=== PATIENT | female | born 1935 | race Caucasian/White ===

== ENCOUNTER 2017-05-13 12:03 | Outpatient (CLI) | payer MEDICARE, OTHER ==
--- NOTE | 2017-05-14 13:19 | Mammography Report ---
DIGITAL SCREENING MAMMOGRAM: 05/13/2017 COMPARISON: 02/29/2016, 05/10/2013, 04/30/2012, 04/22/2011, 04/19/2010, 04/17/2009, 04/16/2008, 04/15. TECHNIQUE: Bilateral digital CC and MLO projections are performed. FINDINGS: There is extensive fatty replacement of the breast tissue. There is no dominant mass, arch itectural distortion, skin thickening, suspicious microcalcifications, or significant interval change . IMPRESSION: NEGATIVE. BIRADS CATEGORY 1-NEGATIVE. RECOMMENDATION: SUGGEST ROUTINE FOLLOWUP IN 12 MONTHS. STANDARD QUALIFYING STATEMENTS 1. This examination was reviewed with the aid of Computer-Aided Detection (CAD). 2. A negative or benign imaging report should not delay biopsy if clinically suspicious findings are present. Consider surgical consultation if warranted. More than 5% of cancers are not identified by i maging. 3. Dense breasts may obscure an underlying neoplasm. JOB #: [id number] EXT JOB #:[id number]
== END 2017-05-13 12:04 | disposition home or self-care (01) ==
LOC: DI 12:03
PROVIDERS: ATTEND Family Medicine
DX: Z12.31 Encounter for screening mammogram for malignant neoplasm of breast (principal)
CPT/HCPCS: 77067

== ENCOUNTER 2018-05-13 08:06 | Day surgery (SDC) | payer MEDICARE, OTHER ==
[2018-05-13] MEDS ORDERED: LACTATED RINGERS 1,000 ML IV ONE ×4 (08:54→11:05)
[2018-05-13 11:39] VITALS: BP 124/79
== END 2018-05-13 08:07 | disposition home or self-care (01) ==
LOC: SDS 08:06
PROVIDERS: ATTEND Internal Medicine
PROC: 0DBP8ZX Excision of Rectum, Via Natural or Artificial Opening Endoscopic, Diagnostic (ICD-10-PCS; 2018-05-13)
PROC: 0DBE8ZX Excision of Large Intestine, Via Natural or Artificial Opening Endoscopic, Diagnostic (ICD-10-PCS; principal; 2018-05-13 09:30)
DX: K51.80 Other ulcerative colitis without complications (principal); I45.4 Nonspecific intraventricular block
CPT/HCPCS: 45380; J7120; 88305

== ENCOUNTER 2018-05-29 07:43 | Outpatient (CLI) | payer MEDICARE, OTHER ==
[2018-05-29 12:14] LABS: BASOPHILS # (AUTO) 0.1 10^3/uL (0.0-0.1); BASOPHILS % (AUTO) 1.2 %; EOSINOPHILS # (AUTO) 0.1 10^3/uL (0.0-0.7); EOSINOPHILS % (AUTO) 2.1 %; HGB - HEMOGLOBIN 11.6 g/dL (12.0-16.0); LYMPHOCYTES # (AUTO) 3.2 10^3/uL (1.5-3.5); LYMPHOCYTES % (AUTO) 52.7 %; MEAN CORPUSCULAR HEMOGLOBIN 35.2 pg (27.0-31.0); MEAN CORPUSCULAR HGB CONC 34.8 g/dL (32.0-36.0); MEAN PLATELET VOLUME 7.1 fL (7.9-10.8); MONOCYTES # (AUTO) 0.5 10^3/uL (0.0-1.0); MONOCYTES % (AUTO) 7.4 %; NEUTROPHILS # (AUTO) 2.3 10^3/uL (1.5-6.6); NEUTROPHILS % (AUTO) 36.6 %; PLT - PLATELET COUNT 426 10^3/uL (130-450); WHITE BLOOD COUNT 6.2 x10^3/uL (4.8-10.8)
[2018-05-29 12:34] LABS: TROPONIN I < 0.04 ng/mL (<0.49)
[2018-05-29 12:37] LABS: CREATINE KINASE MB 1.7 ng/mL (0.6-6.3)
[2018-05-29 12:43] LABS: ALBUMIN 3.9 g/dL (3.2-5.5); ALBUMIN/GLOBULIN RATIO 1.1 (1.0-2.2); ALKALINE PHOSPHATASE 44 IU/L (42-121); ALT ALANINE AMINOTRANSFERASE 11 IU/L (10-60); AST ASPARTATE AMINOTRANSFERASE 18 IU/L (10-42); BILIRUBIN,TOTAL 0.6 mg/dL (0.2-1.0); BUN - BLOOD UREA NITROGEN 16 mg/dL (6-20); CALCIUM 9.1 mg/dL (8.5-10.3); CARBON DIOXIDE - CO2 24 mmol/L (21-32); CHLORIDE 98 mmol/L (101-111); CHOL/HDL RATIO 3.9 (<4.4); CHOLESTEROL 207 mg/dL; CREATININE 0.7 mg/dL (0.4-1.0); GFR - MDRD 80 (>89); GLUCOSE 105 mg/dL (70-100); HDL CHOLESTEROL 53 mg/dL; LDL CHOLESTEROL,CALCULATED 126 mg/dL; LDL/HDL RATIO 2.4 (<4.4); SODIUM 130 mmol/L (135-145); TOTAL PROTEIN 7.3 g/dL (6.7-8.2); VLDL CHOLESTEROL 28 mg/dL
== END 2018-05-29 07:44 | disposition home or self-care (01) ==
LOC: LAB.WCP 07:43
PROVIDERS: ATTEND Family Medicine
DX: I44.7 Left bundle-branch block, unspecified (principal); Z13.220 Encounter for screening for lipoid disorders; E03.9 Hypothyroidism, unspecified
CPT/HCPCS: 36415; 80053; 80061; 82553; 83721; 84443; 84484; 85025; 85379

== ENCOUNTER 2018-07-02 10:59 | Outpatient (CLI) | payer MEDICARE, OTHER | END 2018-07-02 11:00 | disposition home or self-care (01) | LOC: DI 10:59 | PROVIDERS: ATTEND Internal Medicine Cardiovascular Disease | DX: R94.31 Abnormal electrocardiogram [ECG] [EKG] (principal) | CPT/HCPCS: 93306 ==

== ENCOUNTER 2020-01-10 09:06 | Outpatient (CLI) | payer MEDICARE, OTHER ==
[2020-01-10 14:18] LABS: BASOPHILS % (AUTO) 0.3 %; EOSINOPHILS # (AUTO) 0.2 10^3/uL (0.0-0.7); HGB - HEMOGLOBIN 12.1 g/dL (12.0-16.0); LYMPHOCYTES # (AUTO) 2.2 10^3/uL (1.5-3.5); LYMPHOCYTES % (AUTO) 29.7 %; MEAN CORPUSCULAR HEMOGLOBIN 31.8 pg (27.0-31.0); MEAN CORPUSCULAR HGB CONC 32.7 g/dL (32.0-36.0); MEAN CORPUSCULAR VOLUME 97.4 fL (81.0-99.0); MEAN PLATELET VOLUME 9.7 fL (7.9-10.8); MONOCYTES # (AUTO) 0.5 10^3/uL (0.0-1.0); MONOCYTES % (AUTO) 6.8 %; NEUTROPHILS # (AUTO) 4.6 10^3/uL (1.5-6.6); NEUTROPHILS % (AUTO) 60.7 %; PLT - PLATELET COUNT 297 10^3/uL (130-450); RED CELL DISTRIBUTION WIDTH 12.2 % (12.0-15.0); WHITE BLOOD COUNT 7.5 x10^3/uL (4.8-10.8)
[2020-01-10 14:44] LABS: % IRON SATURATION 40 % (20-50); ALBUMIN/GLOBULIN RATIO 1.4 (1.0-2.2); ALKALINE PHOSPHATASE 41 IU/L (42-121); ALT ALANINE AMINOTRANSFERASE 15 IU/L (10-60); AST ASPARTATE AMINOTRANSFERASE 17 IU/L (10-42); BILIRUBIN,TOTAL 0.9 mg/dL (0.2-1.0); BUN - BLOOD UREA NITROGEN 29 mg/dL (6-20); CARBON DIOXIDE - CO2 24 mmol/L (21-32); CHLORIDE 107 mmol/L (101-111); CHOL/HDL RATIO 3.4 (<4.4); CHOLESTEROL 238 mg/dL; CREATININE 0.7 mg/dL (0.4-1.0); GLUCOSE 111 mg/dL (70-100); HDL CHOLESTEROL 69 mg/dL; IRON 123 ug/dL (28-170); LDL CHOLESTEROL,CALCULATED 142 mg/dL; LDL/HDL RATIO 2.1 (<4.4); SODIUM 137 mmol/L (135-145); TOTAL IRON BINDING CAPACITY 308 ug/dL (250-450); TOTAL PROTEIN 6.9 g/dL (6.7-8.2); TRANSFERRIN 220 mg/dL (192-382); VLDL CHOLESTEROL 27 mg/dL
[2020-01-10 15:08] LABS: HB2 TOTAL 12.6 g/dL; HEMOGLOBIN A1C 0.5 g/dL; HEMOGLOBIN A1C % 5.8 % (4.6-6.2)
== END 2020-01-10 23:59 | disposition home or self-care (01) ==
LOC: LAB.WCP 09:06
PROVIDERS: ATTEND Family Medicine
DX: R73.03 Prediabetes (principal); E78.5 Hyperlipidemia, unspecified; D64.9 Anemia, unspecified
CPT/HCPCS: 36415; 80053; 80061; 82728; 83036; 83540; 83721; 84466; 85025

== ENCOUNTER 2020-09-15 08:00 | Outpatient (CLI) | payer MEDICARE, OTHER ==
[2020-09-15 11:44] LABS: BASOPHILS # (AUTO) 0.1 10^3/uL (0.0-0.1); BASOPHILS % (AUTO) 0.8 %; EOSINOPHILS # (AUTO) 0.2 10^3/uL (0.0-0.7); EOSINOPHILS % (AUTO) 3.4 %; HGB - HEMOGLOBIN 12.5 g/dL (12.0-16.0); LYMPHOCYTES # (AUTO) 2.1 10^3/uL (1.5-3.5); LYMPHOCYTES % (AUTO) 31.5 %; MEAN CORPUSCULAR HGB CONC 32.4 g/dL (32.0-36.0); MEAN CORPUSCULAR VOLUME 98.7 fL (81.0-99.0); MEAN PLATELET VOLUME 10.1 fL (7.9-10.8); MONOCYTES # (AUTO) 0.5 10^3/uL (0.0-1.0); MONOCYTES % (AUTO) 7.2 %; NEUTROPHILS # (AUTO) 3.7 10^3/uL (1.5-6.6); NEUTROPHILS % (AUTO) 56.8 %; PLT - PLATELET COUNT 331 10^3/uL (130-450); RED BLOOD COUNT 3.91 10^6/uL (4.20-5.40); RED CELL DISTRIBUTION WIDTH 12.1 % (12.0-15.0); WHITE BLOOD COUNT 6.5 x10^3/uL (4.8-10.8)
[2020-09-15 12:24] LABS: ALBUMIN 4.4 g/dL (3.2-5.5); ALBUMIN/GLOBULIN RATIO 1.6 (1.0-2.2); ALKALINE PHOSPHATASE 37 IU/L (42-121); ALT ALANINE AMINOTRANSFERASE 14 IU/L (10-60); AST ASPARTATE AMINOTRANSFERASE 16 IU/L (10-42); BILIRUBIN,TOTAL 0.8 mg/dL (0.2-1.0); BUN - BLOOD UREA NITROGEN 28 mg/dL (6-20); CALCIUM 9.5 mg/dL (8.5-10.3); CARBON DIOXIDE - CO2 27 mmol/L (21-32); CHLORIDE 103 mmol/L (101-111); CHOL/HDL RATIO 3.4 (<4.4); CHOLESTEROL 217 mg/dL; CREATININE 0.8 mg/dL (0.4-1.0); GLUCOSE 109 mg/dL (70-100); HDL CHOLESTEROL 63 mg/dL; LDL CHOLESTEROL,CALCULATED 133 mg/dL; LDL/HDL RATIO 2.1 (<4.4); TOTAL PROTEIN 7.1 g/dL (6.7-8.2); VLDL CHOLESTEROL 21 mg/dL
== END 2020-09-15 23:59 | disposition home or self-care (01) ==
LOC: LAB.WCP 08:00
PROVIDERS: ATTEND Physician Assistant Medical
DX: E78.5 Hyperlipidemia, unspecified (principal); E03.9 Hypothyroidism, unspecified; D64.89 Other specified anemias
CPT/HCPCS: 36415; 80053; 80061; 83721; 84443; 85025

== ENCOUNTER 2020-10-12 11:22 | Outpatient (CLI) | payer MEDICARE, OTHER ==
--- NOTE | 2020-10-13 12:32 | Mammography Report ---
BILATERAL DIGITAL SCREENING MAMMOGRAM: 10/12/2020 CLINICAL: Routine screening. Comparison is made to exams dated: 05/13/2017 mammogram, 02/29/2016 mammogram, 05/10/2013 mammogram, 04/30 mammogram, 04/22/2011 mammogram, and 04/19/2010 mammogram - [facility]. There are scattered fibroglandular elements in both breasts. No significant masses, calcifications, or other findings are seen in either breast. There has been no significant interval change. IMPRESSION: NEGATIVE There is no mammographic evidence of malignancy. A 1 year screening mammogram is recommended. This exam was interpreted at Station ID: [id number]. NOTE: For mammograms, a report in lay terms will be sent to the patient. Approximately 15% of breast malignancies will not be visualized mammographically. In the management of a palpable breast mass, a negative mammogram must not discourage biopsy of a clinically suspicious lesion. Electronically Signed By: Jose Baez M.D. [email or web address]:10/12/2020 14:10:07 ACR BI-RADS Category 1: Negative 3341F PARENCHYMAL PATTERN: (A) - The breast(s) demonstrate(s) scattered fibroglandular densities. BI-RADS CATEGORY: (1) - 1 RECOMMENDATION: (ANNUAL) - Recommend routine annual screening mammography. [id number] 1 year screening LATERALITY: (B)
== END 2020-10-12 11:23 | disposition home or self-care (01) ==
LOC: DI.N 11:22
DX: Z12.31 Encounter for screening mammogram for malignant neoplasm of breast (principal)

== ENCOUNTER 2021-01-26 08:54 | Emergency (ER) | payer MEDICARE, OTHER ==
[2021-01-26 09:06] VITALS: BP 151/90
[2021-01-26] MEDS ORDERED: KETOROLAC 30 MG/ML VIAL IM STA (09:17)
--- NOTE | 2021-01-26 09:23 | ED Physician Documentation ---
History of Present Illness - Stated complaint Stated Complaint: LT WRIST SWELLING - Chief complaint Chief Complaint: Ext Problem - History obtained from History obtained from: Patient - Additonal information Additional information: 85-year-old woman with history of arthritis presents with left wrist pain after gardening extensively on Friday. She had gradual in onset. Over the past couple of days that is constant, aching, worse with range of motion of the wrist, localized to the ulnar aspect spreading to the radial aspect, moderate severity at present and keeping her from sleeping at night. She also endorses mild increased warmth but no erythema. Possible mild swelling. 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 HEENT: Cataracts - Present Medications Home Medications: Ambulatory Orders Medication Instructions Recorded Confirmed Cholecalciferol (Vitamin D3) 2,000 unit PO DAILY 02/08/13 02/02/14 [Vitamin D3] Folic Acid 1 mg PO DAILY 02/08/13 02/02/14 Levothyroxine Sodium [Synthroid] 125 mcg PO DAILY 02/08/13 02/02/14 Lisinopril 20 mg PO DAILY 02/08/13 02/02/14 Multivitamin [Multivitamins] 1 each PO DAILY 02/08/13 02/02/14 Temazepam [Restoril] 15 mg PO HS PRN 02/08/13 02/02/14 Tiotropium [Spiriva] 1 puffs INH DAILY 02/08/13 02/02/14 Ibuprofen [Motrin] 400 mg PO Q6H PRN #30 tablet 01/26/21 - Allergies Allergies/Adverse Reactions: Allergies Allergy/AdvReac Type Severity Reaction Status Date / Time tetracycline [Tetracycline] AdvReac Nausea Unverified 01/26/21 09:01 PD ED PE NORMAL - Vitals Vital signs reviewed: Yes - General General: Alert and oriented X 3, No acute distress, Well developed/nourished - HEENT HEENT: Atraumatic, PERRL, EOMI - Extremities Extremities: Other (Left wrist tender with range of motion. 2+ bilateral radial pulses. Mild warmth to left wrist compared to the right. No palpable swelling. No bony tenderness.) Results - Vitals Vitals: Vital Signs - 24 hr 01/26/21 09:01 Temperature 36.3 C L Heart Rate 79 Respiratory 18 Rate Blood Pressure 151/90 H O2 Saturation 95 Oxygen O2 Source Room air PD MEDICAL DECISION MAKING - ED course ED course: 85-year-old woman presents with osteoarthritis flare without acute fracture on x-ray.Discussed conservative measures. Return precautions given. Patient will follow up with her primary doctor. Departure - Departure Disposition: Home, Self Care Clinical Impression: Osteoarthritis Condition: Good Instructions: ED RICE Prescriptions: Ibuprofen [Motrin] 400 mg PO Q6H PRN #30 tablet PRN Reason: Pain Comments: You are seen in the emergency department for an osteoarthritis flare of your wrist. Please return to the emergency department if you experience fevers, wors ening swelling or redness, or have any other new or worsening symptoms or other concerns. Take ibuprofen on a full stomach so as not to irritate it and make sure that you do not take more than prescribed. Do not take other NSAID medications with ibuprofen. Follow-up with your primary doctor this week.
--- OUTSIDE RECORDS SUMMARY | 2021-01-26 09:25 | EXTERNAL MEDICAL SUMMARY RPT | Continuity of Care Document ---
:1935 Demographics Phone Unavailable Preferred Language Unknown Marital Status Unknown Orthodoxy Affiliation Unknown Race Unknown Ethnic Group Unknown Author Organization [place] Address [address] [place] [address] Phone Allergies Encounters Medications Problems Results
--- NOTE | 2021-01-26 09:32 | XRAY Report ---
PROCEDURE: Wrist 3 View LT INDICATIONS: wrist pain after gardening Friday TECHNIQUE: 3 views of the wrist were acquired. COMPARISON: None FINDINGS: Bones: No fractures or dislocations. There is diffuse osteopenia. Osteoarthritic changes throughout wrist joints are seen most prominent involving first CMC joint. No suspicious bony lesions. Soft tissues: No suspicious soft tissue calcifications. IMPRESSION: 1. No acute left wrist fracture or dislocation. 2. Wrist joint osteoarthritis most prominent involving first CMC joint. Reviewed by: Zach Elmore MD on 01/26/2021 9:31 AM PDT Approved by: Zach Elmore MD on 01/26/2021 9:31 AM PDT Station ID: [id number]
== END 2021-01-26 09:55 | disposition home or self-care (01) ==
LOC: ED 08:54
DX: M19.032 Primary osteoarthritis, left wrist (principal); I10 Essential (primary) hypertension
CPT/HCPCS: 96372; 99283

== ENCOUNTER 2021-02-06 11:27 | Emergency (ER) | payer MEDICARE, OTHER ==
--- NOTE | 2021-02-06 11:37 | ED Physician Documentation ---
PD HPI URI - Stated complaint Stated Complaint: SOA,CHEST PX, COUGH - Chief complaint Chief Complaint: Resp - History obtained from History obtained from: Patient - History of Present Illness Timing - onset: How many days ago (4) Timing duration: Days (4) Timing details: Gradual onset, Still present Associated symptoms: Rhinorrhea, Productive cough (green sputum), Chest pain (anteriorly with coughing), Dyspnea. No: Fever, NVD, Bilateral edema Contributing factors: No: Sick contact, Travel, Unimmunized (had COVID vaccine 2 months ago. No exposure to sick folk. Has had some general seasonal allergies the past week or so.), COPD / asthma Worsened by: Activity. No: Breathing Similar symptoms before: Has not had sx before Recently seen: Not recently seen Review of Systems Constitutional: denies: Fever, Chills Nose: reports: Congestion. 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 HEENT: Cataracts - Present Medications Home Medications: Ambulatory Orders Medication Instructions Recorded Confirmed Cholecalciferol (Vitamin D3) 2,000 unit PO DAILY 02/08/13 02/02/14 [Vitamin D3] Folic Acid 1 mg PO DAILY 02/08/13 02/02/14 Levothyroxine Sodium [Synthroid] 125 mcg PO DAILY 02/08/13 02/02/14 Lisinopril 20 mg PO DAILY 02/08/13 02/02/14 Multivitamin [Multivitamins] 1 each PO DAILY 02/08/13 02/02/14 Temazepam [Restoril] 15 mg PO HS PRN 02/08/13 02/02/14 Tiotropium [Spiriva] 1 puffs INH DAILY 02/08/13 02/02/14 Ibuprofen [Motrin] 400 mg PO Q6H PRN #30 tablet 01/26/21 Ibuprofen [Motrin] 400 mg PO Q6H PRN #30 tablet 01/26/21 Albuterol Sulf [Ventolin Hfa 2 - 3 puffs INH Q4HR PRN #1 inhaler 02/06/21 Inhaler] Amoxicillin 500 mg PO TID #21 cap 02/06/21 Benzonatate [Tessalon] 100 mg PO TID PRN #20 cap 02/06/21 dexAMETHasone [Decadron] 4 mg PO DAILY #7 tablet 02/06/21 - Allergies Allergies/Adverse Reactions: Allergies Allergy/AdvReac Type Severity Reaction Status Date / Time tetracycline [Tetracycline] AdvReac Nausea Verified 02/06/21 11:35 - Social History Does the pt smoke?: No Smoking Status: Never smoker PD ED PE NORMAL - Vitals Vital signs reviewed: Yes - General General: Alert and oriented X 3, No acute distress, Well developed/nourished - HEENT HEENT: Ears normal, Moist mucous membranes, Pharynx benign - Neck Neck: Supple, no meningeal sign, No adenopathy - Cardiac Cardiac: RRR, No murmur - Respiratory Respiratory: No respiratory distress. No: Clear bilaterally (no coarse sounds. Has some diffuse exp wheezing. ) - Abdomen Abdomen: Soft, Non tender - Derm Derm: Normal color, Warm and dry - Extremities Extremities: Normal ROM s pain, No edema, No calf tenderness / cord - Neuro Neuro: Alert and oriented X 3, No motor deficit, Normal speech Results - Vitals Vitals: Vital Signs - 24 hr 02/06/21 02/06/21 02/06/21 11:31 11:35 12:34 Temperature 36.3 C L Heart Rate 93 83 77 Respiratory 16 20 24 Rate Blood Pressure 173/79 H 159/77 H O2 Saturation 96 98 02/06/21 13:35 Temperature Heart Rate 82 Respiratory 17 Rate Blood Pressure 149/83 H O2 Saturation 97 Oxygen O2 Source Room air - Labs Labs: Laboratory Tests 02/06/21 02/06/21 02/06/21 12:24 12:24 12:24 WBC 9.0 RBC 3.98 L Hgb 12.7 Hct 38.2 MCV 96.0 MCH 31.9 H MCHC 33.2 RDW 12.1 Plt Count 354 MPV 8.5 Neut # (Auto) 6.0 Lymph # (Auto) 2.1 [place] # (Auto) 0.6 Eos # (Auto) 0.2 Baso # (Auto) 0.0 Absolute Nucleated RBC 0.00 Nucleated RBC % 0.0 Sodium 132 L Potassium 4.1 Chloride 96 L Carbon Dioxide 26 Anion Gap 10.0 BUN 25 H Creatinine 0.7 Estimated GFR (MDRD) 79 L Glucose 143 H Calcium 9.6 Total Bilirubin 0.6 AST 22 ALT 20 Alkaline Phosphatase 47 B-Natriuretic Peptide 135 H Total Protein 7.7 Albumin 4.4 Globulin 3.3 Albumin/Globulin Ratio 1.3 Lipase 26 - Rads (name of study) chest xray Radiology: Prelim report reviewed, See rad report PD MEDICAL DECISION MAKING - ED course Complexity details: reviewed results (atelectasis vs infiltrates lower lung coreas. ), re-evaluated patient (improved with neb treatment. ), considered differential, d/w patient Departure - Departure Disposition: 01 Home, Self Care Clinical Impression: Lower respiratory infection Dyspnea Qualifiers: Dyspnea type: shortness of breath Qualified Code(s): R06.02 - Shortness of breath Condition: Stable Record reviewed to determine appropriate education?: Yes Instructions: ED Pneumonia Adult Follow-Up: Lety Best PA-C [Primary Care Provider] - Prescriptions: Albuterol Sulf [Ventolin Hfa Inhaler] 2 - 3 puffs INH Q4HR PRN #1 inhaler PRN Reason: Shortness Of Air/Wheezing Amoxicillin 500 mg PO TID #21 cap dexAMETHasone [Decadron] 4 mg PO DAILY #7 tablet Benzonatate [Tessalon] 100 mg PO TID PRN #20 cap PRN Reason: Cough Comments: Your blood tests are actually good. Chest x-ray shows some mild infiltrate in the lower lung that could be consistent with early pneumonia. Your symptoms so und like bronchitis. We will treat it with an albuterol inhaler to to 3 puffs 4 times a day for the next week or so. This will help with the wheezing and bringing up of phlegm. Decadron steroid daily for a week for bronchial inflammation will help symptoms as well. Tessalon as needed for cough periodically. Amoxicillin 3 times a day for a week for the infection. Follow-up with your primary care in the next several days to a week, call for an appointment. I would anticipate improvement over the next several days and resolving over 5 to 7 days. Return if worsening. Your prescriptions were transmitted electronically to [facility]. Discharge Date/Time: 02/06/21 14:03
[2021-02-06] MEDS ORDERED: ALBUTEROL NEB 2.5 MG/3 ML INH STA (12:11)
[2021-02-06] MEDS ORDERED: DEXAMETHASONE 10 MG/ML VIAL PO STA (12:11)
[2021-02-06] MEDS ORDERED: BENZONATATE 100 MG CAPSULE PO STA (12:11)
[2021-02-06] MEDS ORDERED: CHERRY SYRUP 10 ML UDC PO ONE (12:11)
[2021-02-06 12:31] LABS: BASOPHILS % (AUTO) 0.4 %; EOSINOPHILS # (AUTO) 0.2 10^3/uL (0.0-0.7); EOSINOPHILS % (AUTO) 2.2 %; HCT - HEMATOCRIT 38.2 % (37.0-47.0); HGB - HEMOGLOBIN 12.7 g/dL (12.0-16.0); LYMPHOCYTES # (AUTO) 2.1 10^3/uL (1.5-3.5); LYMPHOCYTES % (AUTO) 23.8 %; MEAN CORPUSCULAR HEMOGLOBIN 31.9 pg (27.0-31.0); MEAN CORPUSCULAR HGB CONC 33.2 g/dL (32.0-36.0); MEAN PLATELET VOLUME 8.5 fL (7.9-10.8); MONOCYTES # (AUTO) 0.6 10^3/uL (0.0-1.0); MONOCYTES % (AUTO) 6.9 %; NEUTROPHILS % (AUTO) 66.3 %; PLT - PLATELET COUNT 354 10^3/uL (130-450); RED BLOOD COUNT 3.98 10^6/uL (4.20-5.40); RED CELL DISTRIBUTION WIDTH 12.1 % (12.0-15.0)
[2021-02-06 12:50] LABS: ALBUMIN 4.4 g/dL (3.2-5.5); ALBUMIN/GLOBULIN RATIO 1.3 (1.0-2.2); BILIRUBIN,TOTAL 0.6 mg/dL (0.2-1.0); CALCIUM 9.6 mg/dL (8.5-10.3); CREATININE 0.7 mg/dL (0.4-1.0); POTASSIUM 4.1 mmol/L (3.5-5.0); TOTAL PROTEIN 7.7 g/dL (6.7-8.2)
--- NOTE | 2021-02-06 12:56 | XRAY Report ---
PROCEDURE: Chest 1 View X-Ray INDICATIONS: Chest Pain TECHNIQUE: One view of the chest was acquired. COMPARISON: Two-view chest 01/13/2018 FINDINGS: Surgical changes and devices: None. Lungs and pleura: No pleural effusions or pneumothorax. Lungs are mildly abnormal with mild elevati on of the left hemidiaphragm. This results in mild bibasilar atelectasis, slightly greater on the lef t than the right.. Mediastinum: Mediastinal contours appear normal. Heart size is normal. Bones and chest wall: No suspicious bony lesions. Overlying soft tissues appear unremarkable. IMPRESSION: Mild bibasilar atelectasis, left greater than right, no definite source of chest pain is seen. The le ft hemidiaphragm had been slightly elevated also in 2018. Reviewed by: Fidel Johnson MD on 02/06/2021 12:55 PM PDT Approved by: Fidel Johnson MD on 02/06/2021 12:55 PM PDT Station ID: [id number]
[2021-02-06 14:03] VITALS: BP 149/83
== END 2021-02-06 14:03 | disposition home or self-care (01) ==
LOC: ED 11:27
DX: J22 Unspecified acute lower respiratory infection (principal); J44.0 Chronic obstructive pulmonary disease with (acute) lower respiratory infection; I10 Essential (primary) hypertension; I44.7 Left bundle-branch block, unspecified
CPT/HCPCS: 36415; 71045; 80053; 83690; 83880; 85025; 93005; 94640; 99283; 99284; A9270

== ENCOUNTER 2021-04-02 08:00 | Outpatient (CLI) | payer MEDICARE, OTHER ==
[2021-04-02 12:57] LABS: ALBUMIN 4.2 g/dL (3.2-5.5); ALBUMIN/GLOBULIN RATIO 1.6 (1.0-2.2); ALKALINE PHOSPHATASE 36 IU/L (42-121); ALT ALANINE AMINOTRANSFERASE 12 IU/L (10-60); AST ASPARTATE AMINOTRANSFERASE 19 IU/L (10-42); BILIRUBIN,TOTAL 1.3 mg/dL (0.2-1.0); BUN - BLOOD UREA NITROGEN 25 mg/dL (6-20); CALCIUM 9.3 mg/dL (8.5-10.3); CARBON DIOXIDE - CO2 26 mmol/L (21-32); CHLORIDE 100 mmol/L (101-111); CHOL/HDL RATIO 3.1 (<4.4); CHOLESTEROL 220 mg/dL; CREATININE 0.7 mg/dL (0.4-1.0); GFR - MDRD 79 (>89); GLUCOSE 106 mg/dL (70-100); HDL CHOLESTEROL 70 mg/dL; LDL CHOLESTEROL,CALCULATED 133 mg/dL; LDL/HDL RATIO 1.9 (<4.4); POTASSIUM 4.9 mmol/L (3.5-5.0); SODIUM 134 mmol/L (135-145); TOTAL PROTEIN 6.8 g/dL (6.7-8.2); TRIGLYCERIDES 85 mg/dL; VLDL CHOLESTEROL 17 mg/dL
== END 2021-04-02 23:59 | disposition home or self-care (01) ==
LOC: LAB.WCP 08:00
PROVIDERS: ATTEND Physician Assistant Medical
DX: E78.5 Hyperlipidemia, unspecified (principal)
CPT/HCPCS: 36415; 80053; 80061; 83721

== ENCOUNTER 2021-05-28 08:36 | Emergency (ER) | payer MEDICARE, OTHER ==
[2021-05-28 09:07] VITALS: BP 134/66
[2021-05-28 09:11] LABS: BASOPHILS % (AUTO) 0.5 %; EOSINOPHILS # (AUTO) 0.2 10^3/uL (0.0-0.7); EOSINOPHILS % (AUTO) 2.2 %; HCT - HEMATOCRIT 36.2 % (37.0-47.0); LYMPHOCYTES # (AUTO) 1.9 10^3/uL (1.5-3.5); LYMPHOCYTES % (AUTO) 25.7 %; MEAN CORPUSCULAR HEMOGLOBIN 31.7 pg (27.0-31.0); MEAN CORPUSCULAR HGB CONC 33.1 g/dL (32.0-36.0); MEAN CORPUSCULAR VOLUME 95.8 fL (81.0-99.0); MEAN PLATELET VOLUME 8.9 fL (7.9-10.8); MONOCYTES # (AUTO) 0.6 10^3/uL (0.0-1.0); MONOCYTES % (AUTO) 8.3 %; NEUTROPHILS # (AUTO) 4.7 10^3/uL (1.5-6.6); NEUTROPHILS % (AUTO) 62.8 %; PLT - PLATELET COUNT 340 10^3/uL (130-450); RED BLOOD COUNT 3.78 10^6/uL (4.20-5.40); RED CELL DISTRIBUTION WIDTH 12.3 % (12.0-15.0); WHITE BLOOD COUNT 7.4 x10^3/uL (4.8-10.8)
[2021-05-28 09:21] LABS: ALBUMIN 4.3 g/dL (3.2-5.5); ALBUMIN/GLOBULIN RATIO 1.4 (1.0-2.2); BILIRUBIN,TOTAL 0.6 mg/dL (0.2-1.0); CALCIUM 9.2 mg/dL (8.5-10.3); CREATININE 0.6 mg/dL (0.4-1.0); POTASSIUM 4.6 mmol/L (3.5-5.0); TOTAL PROTEIN 7.4 g/dL (6.7-8.2)
--- NOTE | 2021-05-28 09:22 | XRAY Report ---
PROCEDURE: Chest 1 View X-Ray INDICATIONS: chest pain TECHNIQUE: One view of the chest was acquired. COMPARISON: CXR 02/06/2021, 01/13/2018. FINDINGS: Surgical changes and devices: None. Lungs and pleura: No significant pleural effusions or pneumothorax. Mild bibasilar hazy and streaky opacity. Overall findings appear similar the prior exam. No consolidative opacity demonstrated. Mediastinum: Mediastinal contours appear unchanged. Heart size is within normal limits. Bones and chest wall: No suspicious bony lesions. Overlying soft tissues appear unremarkable. IMPRESSION: Mild bibasilar hazy and streaky opacity. Favor atelectasis and/or scarring. Reviewed by: Alejandro Adam MD on 05/28/2021 9:20 AM PDT Approved by: Alejandro Adam MD on 05/28/2021 9:20 AM PDT Station ID: [id number]
--- NOTE | 2021-05-28 09:38 | ED Physician Documentation ---
History of Present Illness - Stated complaint Stated Complaint: SOA/COUGHING - Chief complaint Chief Complaint: Resp - History obtained from History obtained from: Patient - Additonal information Additional information: Patient comes emergency department chief complaint of recurrence of cough. She states that about a month ago, and she was put on treatment for bronchitis, with antibiotics. The patient at that time had a heavy cough productive of yellowish-green phlegm, but no fevers. She has a history of COPD and was a smoker until several decades ago. The patient states that the antibiotics did take the cough away and cleared up the phlegm. However, after a 2-week hiatus, the cough has returned, with the same heavy phlegm. No fevers or chills. Patient is mildly dyspneic. No new edema. No chest pain. No other complaints at this time. Review of Systems Ten Systems: 10 systems reviewed and negative Constitutional: reports: Reviewed and negative Eyes: reports: Reviewed and negative Ears: reports: Reviewed and negative Nose: reports: Reviewed and negative Throat: reports: Reviewed and negative Cardiac: reports: Reviewed and negative Respiratory: reports: Cough GI: reports: Reviewed and negative : reports: Reviewed and negative Skin: reports: Reviewed and negative Musculoskeletal: reports: Reviewed and negative Neurologic: reports: Reviewed and negative Psychiatric: reports: Reviewed and negative Endocrine: reports: Reviewed and negative Immunocompromised: reports: Reviewed and negative PD PAST MEDICAL HISTORY - Past Medical History Cardiovascular: Hypertension Respiratory: COPD Endocrine/Autoimmune: HyPOthyroidism GI: Colon polyps, Cholelithiasis, Ulcerative colitis 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 : None HEENT: Chronic vision loss, Glaucoma Psych: None Musculoskeletal: None Derm: None - Past Surgical History Past Surgical History: No General: Cholecystectomy, Appendectomy, Colonoscopy Ortho: 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 surgery /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: Hysterectomy HEENT: Cataracts - Present Medications Home Medications: Ambulatory Orders Medication Instructions Recorded Confirmed Levothyroxine Sodium [Synthroid] 125 mcg PO DAILY 02/08/13 05/28/21 Lisinopril 20 mg PO DAILY 02/08/13 05/28/21 Multivitamin [Multivitamins] 1 each PO DAILY 02/08/13 05/28/21 Albuterol Sulf [Ventolin Hfa 2 - 3 puffs INH Q4HR PRN #1 inhaler 02/06/21 05/28/21 Inhaler] Doxycycline Monohydrate 100 mg PO BID #14 05/28/21 - Allergies Allergies/Adverse Reactions: Allergies Allergy/AdvReac Type Severity Reaction Status Date / Time tetracycline [Tetracycline] AdvReac Nausea Verified 05/28/21 08:40 - Social History Does the pt smoke?: No Smoking Status: Never smoker Does the pt drink ETOH?: No Does the pt have substance abuse?: No - Immunizations Immunizations are current?: Yes - POLST Patient has POLST: No PD ED PE NORMAL - Vitals Vital signs reviewed: Yes - General General: Alert and oriented X 3, No acute distress, Well developed/nourished - HEENT HEENT: Atraumatic, PERRL, EOMI, Moist mucous membranes - Neck Neck: Supple, no meningeal sign - Cardiac Cardiac: RRR, No murmur, Strong equal pulses - Respiratory Respiratory: No respiratory distress, Clear bilaterally, Other (Deep, congested sounding cough.) - Abdomen Abdomen: Soft, Non tender, Non distended - Derm Derm: Normal color, Warm and dry, No rash - Extremities Extremities: No deformity, Other (Moderate, nonpitting edema bilateral lower extremities.) - Neuro Neuro: Alert and oriented X 3, dimensional inspector 2-12 intact, Normal speech - Psych Psych: Normal mood, Normal affect Results - Vitals Vitals: Vital Signs - 24 hr 05/28/21 05/28/21 05/28/21 08:40 08:57 09:03 Temperature 36.4 C L Heart Rate 78 78 77 Respiratory 18 16 18 Rate Blood Pressure 175/80 H 134/66 H O2 Saturation 98 98 97 Oxygen O2 Source Room air - EKG (time done) 0905 Rate: Rate (enter#) (79) Rhythm: NSR Intervals: LBBB QRS: Normal Ischemia: Normal ST segments Other comments: Other comments (ectopy (PACs)) - Labs Labs: Laboratory Tests 05/28/21 05/28/21 08:55 08:55 WBC 7.4 RBC 3.78 L Hgb 12.0 Hct 36.2 L MCV 95.8 MCH 31.7 H MCHC 33.1 RDW 12.3 Plt Count 340 MPV 8.9 Neut # (Auto) 4.7 Lymph # (Auto) 1.9 [place] # (Auto) 0.6 Eos # (Auto) 0.2 Baso # (Auto) 0.0 Absolute Nucleated RBC 0.00 Nucleated RBC % 0.0 Sodium 136 Potassium 4.6 Chloride 103 Carbon Dioxide 22 Anion Gap 11.0 BUN 22 H Creatinine 0.6 Estimated GFR (MDRD) 94 Glucose 120 H Calcium 9.2 Total Bilirubin 0.6 AST 18 ALT 15 Alkaline Phosphatase 44 Total Protein 7.4 Albumin 4.3 Globulin 3.1 Albumin/Globulin Ratio 1.4 Lipase 124 H - Rads (name of study) Chest x-ray Radiology: Final report received, EMP read indepedently, See rad report (Atelectasis versus scarring) PD MEDICAL DECISION MAKING - ED course Complexity details: reviewed results, re-evaluated patient, considered differential, d/w patient ED course: Patient's laboratory studies were unremarkable, and her chest x-ray showed no evidence of acute infection. EKG showed a left bundle branch block and occasional PACs, but otherwise unremarkable. The patient was at risk for bronchitis, due to her age and COPD, and I suspected that bronchitis had ret urned. I will treat her again for this, but the patient is advised to follow-up with her primary doctor to discuss further management of the recurrent symptoms. Departure - Departure Disposition: 01 Home, Self Care Clinical Impression: Moderate COPD (chronic obstructive pulmonary disease), Lower respiratory infection (e.g., bronchitis, pneumonia, pneumonitis, pulmonitis) Condition: Stable Instructions: ED Upper Resp Infec Abx Tx Prescriptions: Doxycycline Monohydrate 100 mg PO BID #14
== END 2021-05-28 09:56 | disposition home or self-care (01) ==
LOC: ED 08:36
DX: J44.0 Chronic obstructive pulmonary disease with (acute) lower respiratory infection (principal); I10 Essential (primary) hypertension; I44.7 Left bundle-branch block, unspecified; I49.1 Atrial premature depolarization; R60.0 Localized edema; Z87.891 Personal history of nicotine dependence
CPT/HCPCS: 36415; 80053; 83690; 83880; 85025; 93005; 99284

== ENCOUNTER 2021-06-23 10:28 | Outpatient (CLI) | payer MEDICARE, OTHER ==
--- NOTE | 2021-06-28 02:20 | XRAY Report ---
PROCEDURE: Chest 2 View X-Ray INDICATIONS: COPD TECHNIQUE: 2 view(s) of the chest. Images became available for interpretation on 06/27/2021. COMPARISON: Chest x-ray 06/28/2021 FINDINGS: Surgical changes and devices: None. Lungs and pleura: Persistent appearance of streaky bibasilar opacities as well as blunting of the cos tophrenic angles.. Mediastinum: Mediastinal contours are normal. Heart size is normal. Bones and chest wall: No suspicious bony abnormalities. Soft tissues appear unremarkable. IMPRESSION: Stable appearance of bibasilar opacities possibly atelectasis versus scarring. Reviewed by: Jennifer Lerma MD on 06/28/2021 12:27 AM PDT Approved by: Jennifer Lerma MD on 06/28/2021 12:27 AM PDT Station ID: [id number]
== END 2021-06-23 10:29 | disposition home or self-care (01) ==
LOC: DI.N 10:28
PROVIDERS: ATTEND Physician Assistant Medical
DX: J44.9 Chronic obstructive pulmonary disease, unspecified (principal)

== ENCOUNTER 2021-09-10 08:00 | Outpatient (CLI) | payer MEDICARE, OTHER ==
[2021-09-10 12:13] LABS: THYROID STIMULATING HORMONE 0.9 uIU/mL (0.34-5.60)
[2021-09-10 12:16] LABS: ALBUMIN 3.7 g/dL (3.2-5.5); ALBUMIN/GLOBULIN RATIO 1.1 (1.0-2.2); ALKALINE PHOSPHATASE 43 IU/L (42-121); ALT ALANINE AMINOTRANSFERASE 18 IU/L (10-60); AST ASPARTATE AMINOTRANSFERASE 18 IU/L (10-42); BILIRUBIN,TOTAL 0.7 mg/dL (0.2-1.0); BUN - BLOOD UREA NITROGEN 16 mg/dL (6-20); CALCIUM 8.9 mg/dL (8.5-10.3); CARBON DIOXIDE - CO2 24 mmol/L (21-32); CHLORIDE 100 mmol/L (101-111); CHOL/HDL RATIO 3.3 (<4.4); CHOLESTEROL 174 mg/dL; CREATININE 0.5 mg/dL (0.4-1.0); GFR - MDRD 116 (>89); GLUCOSE 117 mg/dL (70-100); HDL CHOLESTEROL 52 mg/dL; LDL CHOLESTEROL,CALCULATED 106 mg/dL; POTASSIUM 3.5 mmol/L (3.5-5.0); SODIUM 134 mmol/L (135-145); TOTAL PROTEIN 7.2 g/dL (6.7-8.2); TRIGLYCERIDES 79 mg/dL; VLDL CHOLESTEROL 16 mg/dL
== END 2021-09-10 23:59 ==
LOC: LAB.WCP 08:00
PROVIDERS: ATTEND Physician Assistant Medical
DX: E03.9 Hypothyroidism, unspecified (principal); E78.5 Hyperlipidemia, unspecified
CPT/HCPCS: 36415; 80053; 80061; 83721; 84443

== ENCOUNTER 2022-01-22 11:18 | Outpatient (CLI) | payer MEDICARE, OTHER ==
[2022-01-22 17:46] LABS: BASOPHILS # (AUTO) 0.1 10^3/uL (0.0-0.1); BASOPHILS % (AUTO) 0.8 %; EOSINOPHILS # (AUTO) 0.1 10^3/uL (0.0-0.7); EOSINOPHILS % (AUTO) 0.7 %; HCT - HEMATOCRIT 33.6 % (37.0-47.0); HGB - HEMOGLOBIN 10.8 g/dL (12.0-16.0); LYMPHOCYTES # (AUTO) 2.9 10^3/uL (1.5-3.5); LYMPHOCYTES % (AUTO) 32.5 %; MEAN CORPUSCULAR HEMOGLOBIN 32.1 pg (27.0-31.0); MEAN CORPUSCULAR HGB CONC 32.1 g/dL (32.0-36.0); MEAN PLATELET VOLUME 9.6 fL (7.9-10.8); MONOCYTES # (AUTO) 0.8 10^3/uL (0.0-1.0); MONOCYTES % (AUTO) 9.3 %; NEUTROPHILS % (AUTO) 55.7 %; PLT - PLATELET COUNT 549 10^3/uL (130-450); RED BLOOD COUNT 3.36 10^6/uL (4.20-5.40); WHITE BLOOD COUNT 8.9 x10^3/uL (4.8-10.8)
[2022-01-22 18:03] LABS: ALBUMIN 3.9 g/dL (3.2-5.5); ALBUMIN/GLOBULIN RATIO 1.1 (1.0-2.2); ALKALINE PHOSPHATASE 37 IU/L (42-121); ALT ALANINE AMINOTRANSFERASE < 10 IU/L (10-60); AST ASPARTATE AMINOTRANSFERASE 15 IU/L (10-42); BILIRUBIN,TOTAL 0.7 mg/dL (0.2-1.0); BUN - BLOOD UREA NITROGEN 22 mg/dL (6-20); CALCIUM 9.5 mg/dL (8.5-10.3); CARBON DIOXIDE - CO2 25 mmol/L (21-32); CHLORIDE 101 mmol/L (101-111); CREATININE 0.7 mg/dL (0.4-1.0); GFR - MDRD 79 (>89); GLUCOSE 102 mg/dL (70-100); POTASSIUM 4.4 mmol/L (3.5-5.0); SODIUM 135 mmol/L (135-145); TOTAL PROTEIN 7.3 g/dL (6.7-8.2)
== END 2022-01-22 11:19 | disposition home or self-care (01) ==
LOC: LAB.N 11:18
PROVIDERS: ATTEND Physician Assistant Medical
DX: K51.90 Ulcerative colitis, unspecified, without complications (principal); D64.89 Other specified anemias
CPT/HCPCS: 36415; 80053; 85025

== ENCOUNTER 2022-02-18 10:29 | Outpatient (CLI) | payer MEDICARE, OTHER ==
[2022-02-18 11:56] LABS: BASOPHILS # (AUTO) 0.1 10^3/uL (0.0-0.1); BASOPHILS % (AUTO) 0.9 %; EOSINOPHILS # (AUTO) 0.1 10^3/uL (0.0-0.7); EOSINOPHILS % (AUTO) 0.9 %; HCT - HEMATOCRIT 31.7 % (37.0-47.0); HGB - HEMOGLOBIN 10.4 g/dL (12.0-16.0); LYMPHOCYTES # (AUTO) 2.4 10^3/uL (1.5-3.5); LYMPHOCYTES % (AUTO) 34.2 %; MEAN CORPUSCULAR HEMOGLOBIN 32.1 pg (27.0-31.0); MEAN CORPUSCULAR HGB CONC 32.8 g/dL (32.0-36.0); MEAN CORPUSCULAR VOLUME 97.8 fL (81.0-99.0); MEAN PLATELET VOLUME 8.7 fL (7.9-10.8); MONOCYTES # (AUTO) 0.7 10^3/uL (0.0-1.0); MONOCYTES % (AUTO) 9.3 %; NEUTROPHILS # (AUTO) 3.8 10^3/uL (1.5-6.6); NEUTROPHILS % (AUTO) 54.3 %; PLT - PLATELET COUNT 451 10^3/uL (130-450); RED BLOOD COUNT 3.24 10^6/uL (4.20-5.40); RED CELL DISTRIBUTION WIDTH 13.8 % (12.0-15.0)
[2022-02-18 12:24] LABS: % IRON SATURATION 14 % (20-50); ALBUMIN 3.8 g/dL (3.2-5.5); ALBUMIN/GLOBULIN RATIO 1.2 (1.0-2.2); ALKALINE PHOSPHATASE 34 IU/L (42-121); ALT ALANINE AMINOTRANSFERASE < 10 IU/L (10-60); AST ASPARTATE AMINOTRANSFERASE 15 IU/L (10-42); BILIRUBIN,TOTAL 0.6 mg/dL (0.2-1.0); BUN - BLOOD UREA NITROGEN 26 mg/dL (6-20); CALCIUM 9.4 mg/dL (8.5-10.3); CARBON DIOXIDE - CO2 26 mmol/L (21-32); CHLORIDE 100 mmol/L (101-111); CHOL/HDL RATIO 2.9 (<4.4); CHOLESTEROL 165 mg/dL; CREATININE 0.8 mg/dL (0.4-1.0); GFR - MDRD 68 (>89); GLUCOSE 105 mg/dL (70-100); HDL CHOLESTEROL 56 mg/dL; IRON 52 ug/dL (28-170); LDL CHOLESTEROL,CALCULATED 94 mg/dL; LDL/HDL RATIO 1.7 (<4.4); POTASSIUM 4.5 mmol/L (3.5-5.0); SODIUM 133 mmol/L (135-145); TOTAL IRON BINDING CAPACITY 371 ug/dL (250-450); TOTAL PROTEIN 7.1 g/dL (6.7-8.2); TRANSFERRIN 265 mg/dL (192-382); TRIGLYCERIDES 75 mg/dL; VLDL CHOLESTEROL 15 mg/dL
[2022-02-18 12:33] LABS: FERRITIN 37.2 ng/mL (11.0-306.8)
== END 2022-02-18 10:30 | disposition home or self-care (01) ==
LOC: LAB.N 10:29
PROVIDERS: ATTEND Physician Assistant Medical
DX: D64.9 Anemia, unspecified (principal); E78.5 Hyperlipidemia, unspecified; I10 Essential (primary) hypertension
CPT/HCPCS: 36415; 80053; 80061; 82607; 82728; 82746; 83540; 83721; 84466; 85025

== ENCOUNTER 2022-04-21 18:24 | Outpatient (CLI) | payer MEDICARE, OTHER | END 2022-04-21 18:25 | disposition critical access hospital (66) | LOC: EMS 18:24 | DX: R47.81 Slurred speech (principal); R41.82 Altered mental status, unspecified; R53.1 Weakness; R29.810 Facial weakness | CPT/HCPCS: A0425; A0429 ==

== ENCOUNTER 2022-04-21 18:49 | Inpatient (IN) | payer MEDICARE, OTHER ==
[2022-04-21] MEDS ORDERED: SODIUM CHLORIDE 0.9% 1,000 ML IV STA (19:00)
--- NOTE | 2022-04-21 19:03 | ED Physician Documentation ---
History of Present Illness - Stated complaint Stated Complaint: CODE STROKE - History obtained from History obtained from: Patient, Family, EMS - History of Present Illness Timing: Today Pain level max: 0 Pain level now: 0 - Additonal information Additional information: Last known normal was approximately 4 hours prior to arrival. 87-year-old female who lives at home with family. She ate lunch today and then when she woke up from her nap, noted to have left-sided weakness and difficulty speaking. Last known normal was about 3 PM. Patient is DNR, comfort care. Patient has a history of ulcerative colitis and was treated recently with prednisone for this. Currently off of the prednisone. No known history of atrial fibrillation. No known history of TIA/stroke. No trauma. Review of Systems Unable to obtain: Confused PD PAST MEDICAL HISTORY - Past Medical History Past Medical History: Yes Cardiovascular: Hypertension Respiratory: COPD Endocrine/Autoimmune: HyPOthyroidism GI: Colon polyps, Cholelithiasis, Ulcerative colitis [employer]: None : None HEENT: Chronic vision loss, Glaucoma Psych: None Musculoskeletal: None Derm: None - Past Surgical History Past Surgical History: No General: Cholecystectomy, Appendectomy, Colonoscopy Ortho: 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 surgery /[employer]: Hysterectomy HEENT: Cataracts - Present Medications Home Medications: Ambulatory Orders Medication Instructions Recorded Confirmed Levothyroxine Sodium [Synthroid] 125 mcg PO DAILY 02/08/13 05/28/21 Lisinopril 20 mg PO DAILY 02/08/13 05/28/21 Multivitamin [Multivitamins] 1 each PO DAILY 02/08/13 05/28/21 Albuterol Sulf [Ventolin Hfa 2 - 3 puffs INH Q4HR PRN #1 inhaler 02/06/21 05/28/21 Inhaler] Doxycycline Monohydrate 100 mg PO BID #14 05/28/21 predniSONE [Deltasone] 20 mg PO DAILY #7 tablet 04/12/22 - Allergies Allergies/Adverse Reactions: Allergies Allergy/AdvReac Type Severity Reaction Status Date / Time tetracycline [Tetracycline] AdvReac Nausea Verified 04/12/22 17:49 - Social History Does the pt smoke?: No Smoking Status: Never smoker Does the pt drink ETOH?: No Does the pt have substance abuse?: No - Immunizations Immunizations are current?: Yes - POLST Patient has POLST: No PD ED PE NORMAL - Vitals Vital signs reviewed: Yes - General General: No acute distress, Well developed/nourished, Other (Alert, unable to tell me her name, place or date.) - HEENT HEENT: Atraumatic, PERRL, Moist mucous membranes - Neck Neck: Supple, no meningeal sign - Cardiac Cardiac: RRR, Strong equal pulses - Respiratory Respiratory: No respiratory distress, Clear bilaterally - Abdomen Abdomen: Soft, Non tender, Non distended - Back Back: No spinal TTP - Derm Derm: Warm and dry - Extremities Extremities: No deformity, No edema, No calf tenderness / cord - Neuro Neuro: No sensory deficit Eye Opening: Spontaneous Motor: Obeys Commands Verbal: Confused GCS Score: 14 Results - Vitals Vitals: Vital Signs - 24 hr 04/21/22 04/21/22 04/21/22 19:01 20:03 20:36 Temperature 36.6 C Heart Rate 133 H 95 111 H Respiratory 22 19 19 Rate Blood Pressure 118/52 L 102/57 L 109/64 O2 Saturation 99 100 100 Oxygen O2 Source Room air - EKG (time done) 2135 Rate: Rate (enter#) (109) Rhythm: Atrial fibrillation Intervals: LBBB - Labs Labs: Laboratory Tests 04/21/22 04/21/22 04/21/22 18:08 18:08 20:30 WBC 14.1 H RBC 3.49 L Hgb 10.5 L Hct 32.3 L MCV 92.6 MCH 30.1 MCHC 32.5 RDW 14.5 Plt Count 364 MPV 8.5 Neut # (Auto) Not Reportable Lymph # (Auto) Not Reportable [place] # (Auto) Not Reportable Eos # (Auto) Not Reportable Baso # (Auto) Not Reportable Absolute Nucleated RBC Not Reportable Total Counted 100 Band Neuts % (Manual) 19 H Reactive Lymphs % (Man) 2 Abnorm Lymph % (Manual) 0 Nucleated RBC % Not Reportable Neutrophils # (Manual) 12.3 H Lymphocytes # (Manual) 1.0 L Monocytes # (Manual) 0.8 Eosinophils # (Manual) 0.0 Basophils # (Manual) 0.0 Differential Comment MANUAL DIFFERENTIAL Platelet Estimate NORMAL (130-450,000) Platelet Morphology NORMAL APPEARANCE RBC Morph Micro Appear NORMAL APPEARANCE Sodium 127 L Potassium 3.8 Chloride 95 L Carbon Dioxide 21 Anion Gap 11.0 BUN 37 H Creatinine 0.9 Estimated GFR (MDRD) 59 L Glucose 152 H Calcium 8.5 Total Bilirubin 0.4 AST 26 ALT 24 Alkaline Phosphatase 63 Total Protein 6.6 L Albumin 2.8 L Globulin 3.8 Albumin/Globulin Ratio 0.7 L Lipase 40 Urine Color YELLOW Urine Clarity CLEAR Urine pH 5.5 Ur Specific [place] 1.010 Urine Protein 30 H Urine Glucose (UA) NEGATIVE Urine Ketones TRACE Urine Occult Blood NEGATIVE Urine Nitrite NEGATIVE Urine Bilirubin SMALL H Urine Urobilinogen 0.2 (NORMAL) Ur Leukocyte Esterase NEGATIVE Urine RBC 0-5 Urine WBC 0-3 Ur Squamous Epith Cells FEW Squamous Amorphous Sediment Few Urine Bacteria Few Ur Microscopic Review INDICATED Urine Culture Comments NOT INDICATED - Rads (name of study) Head CT Radiology: Final report received, EMP read contemporaneously, See rad report (No acute abnormality) CT angiogram head and neck Radiology: Final report received, EMP read contemporaneously, See rad report (No acute abnormality) PD MEDICAL DECISION MAKING - ED course Complexity details: reviewed results, re-evaluated patient, considered differential, d/w patient, d/w family, d/w vm[employer] consultant ED course: 87-year-old female with a left-sided stroke and difficulty with speech. No acute findings on head CT or angiogram of the head and neck. She is found to be in atrial fibrillation. Unclear if she has ever had this before. She is not anticoagulated. She is is out of the 4-1/2-hour window for tPA. We discussed tPA at the bedside, family does not feel that she would want this medication even if she was a candidate. The patient is having difficulty swallowing, therefore we will keep her n.p.o. and start her on IV fluids. She was given rectal aspirin. Discussed the case with Dr. Randall, hospitalist who accepts Departure - Departure Disposition: 66 [facility] DC/Xfer Clinical Impression: Cerebrovascular accident (CVA) Qualifiers: CVA mechanism: unspecified Qualified Code(s): I63.9 - Cerebral infarction, unspecified Condition: Stable NIHSS - Time Time: 19:00 - Level of Consciousness Level of consciousness: (0) Alert, Keenly responsive LOC Questions: (1) Answers one Q correctly LOC Commands: (1) Performs one correctly - Gaze Best Gaze: (0) Normal - Visual Visual: (0) No loss - Facial Palsy Facial Palsy: (1) Minor paralysis - Motor Arms (both separate) Motor Arm (right): (0) No drift Motor Arm (left): (3) No effort against gravity - Motor Legs (both separate) Motor Leg (right): (0) No drift Motor Leg (left): (3) No effort against gravity - Limb Ataxia Limb Ataxia: (1) Present in 1 limb - Sensory Sensory: (0) Normal - Best Language Best Language: (2) Severe aphasia - Dysarthria Dysarthria: (1) Itcy-gw-mdvvxpts dysarthria - Extinction and Inattention (formally neg Extinction and inattention: (0) No abnormality - Total Score/Results Total Score/Result: 13
[2022-04-21 19:10] LABS: BASOPHILS % (AUTO) 0.5 %; HCT - HEMATOCRIT 32.3 % (37.0-47.0); HGB - HEMOGLOBIN 10.5 g/dL (12.0-16.0); LYMPHOCYTES % (AUTO) 9.8 %; MEAN CORPUSCULAR HEMOGLOBIN 30.1 pg (27.0-31.0); MEAN CORPUSCULAR HGB CONC 32.5 g/dL (32.0-36.0); MEAN CORPUSCULAR VOLUME 92.6 fL (81.0-99.0); MEAN PLATELET VOLUME 8.5 fL (7.9-10.8); MONOCYTES % (AUTO) 5.3 %; NEUTROPHILS % (AUTO) 83.4 %; PLT - PLATELET COUNT 364 10^3/uL (130-450); RED BLOOD COUNT 3.49 10^6/uL (4.20-5.40); RED CELL DISTRIBUTION WIDTH 14.5 % (12.0-15.0); WHITE BLOOD COUNT 14.1 x10^3/uL (4.8-10.8)
[2022-04-21 19:13] LABS: ABNORMAL LYMPHS % (MANUAL) 0 %
[2022-04-21 19:21] LABS: ALBUMIN 2.8 g/dL (3.2-5.5); ALBUMIN/GLOBULIN RATIO 0.7 (1.0-2.2); BILIRUBIN,TOTAL 0.4 mg/dL (0.2-1.0); CALCIUM 8.5 mg/dL (8.5-10.3); CREATININE 0.9 mg/dL (0.4-1.0); POTASSIUM 3.8 mmol/L (3.5-5.0); TOTAL PROTEIN 6.6 g/dL (6.7-8.2)
--- NOTE | 2022-04-21 19:24 | CT Report ---
PROCEDURE: Head W/O Stroke Protocol INDICATIONS: L sided weakness, slurred speech TECHNIQUE: Noncontrast 4.5 mm thick angled axial sections acquired from the foramen magnum to the vertex, with c oronal reformats. For radiation dose reduction, the following was used: automated exposure control, adjustment of mA and/or kV according to patient size. COMPARISON: FINDINGS: Image quality: Excellent. CSF spaces: Basal cisterns are patent. No extra-axial fluid collections. Ventricles are normal in size and shape. Brain: No midline shift. No intracranial masses or hemorrhage. Maldonado-white matter interface is norm al. Skull and face: Calvarium and visualized facial bones are intact, without suspicious lesions. Sinuses: Right maxillary sinus air-fluid level. Visualized sinuses and mastoids are otherwise clear. IMPRESSION: No acute intracranial abnormality. Findings discussed with Dr. Guillen on 04/13/20202019. This study fulfills neurological imaging criteria for inclusion or exclusion of acute stroke therapie s based on available published neurological imaging guidelines. Reviewed by: Jalyn Morillo MD on 04/21/2022 7:22 PM PDT Approved by: Jalyn Morillo MD on 04/21/2022 7:22 PM PDT Station ID: [id number]
[2022-04-21 19:40] LABS: BAND NEUTROPHILS % (MANUAL) 19 %; DIFFERENTIAL COMMENT MANUAL DIFFERENTIAL; LYMPHOCYTES % (MANUAL) 5 %; MONOCYTES # (MANUAL) 0.8 10^3/uL (0.0-1.0); NEUTROPHILS # (MANUAL) 12.3 10^3/uL (1.5-6.6); PLATELET ESTIMATE, MANUAL NORMAL (130-450,000) (NORMAL); PLATELET MORPHOLOGY NORMAL APPEARANCE (NORMAL); RBC MORPHOLOGY (MULTIPLE) NORMAL APPEARANCE (NORMAL); REACTIVE LYMPHS % (MANUAL) 2 %
--- NOTE | 2022-04-21 19:44 | CT Report ---
PROCEDURE: ANGIO NECK W INDICATIONS: L sided weakness, slurred speech CONTRAST: IV CONTRAST: Optiray 320 ml: 100 PO CONTRAST: *NO PO CONTRAST TECHNIQUE: After the administration of intravenous contrast, 1.5 mm axial sections acquired from the aortic arch to the [place] of [place]. Coronal 3-D maximum intensity projection (MIP) and/or volume rendering ref ormats were then performed. For radiation dose reduction, the following was used: automated exposur e control, adjustment of mA and/or kV according to patient size. COMPARISON: None. FINDINGS: Image quality: Excellent. Carotid system: The great vessels demonstrate a conventional anatomy as they arise from the aortic a rch. The origins of the common carotid arteries appear patent. Mild calcific stenosis of the right c ommon carotid artery. Mild, roughly 20% calcific origin stenoses of the bilateral internal carotid ar teries. Posterior circulation: High-grade left vertebral artery origin stenosis. Right vertebral patria ry is patent. The more superior portions of the vertebral arteries demonstrate normal course and brea helene. They join to form a normal appearing basilar artery. Soft tissues: Visualized neck soft tissues demonstrate no suspicious abnormalities. The thyroid is normal in size and there are no incidental findings. Severe biapical emphysema is present. Bones: No suspicious bony lesions. Visualized cervical spine appears normally aligned. Air-fluid level within the right maxillary sinus. IMPRESSION: 1. No acute process involving the arterial tree of the head and neck. 2. Right maxillary sinus disease. 3. Emphysema. The estimate of stenosis included in the report of the imaging study was calculated using the NASCET method Reviewed by: Jalyn Morillo MD on 04/21/2022 7:43 PM PDT Approved by: Jalyn Morillo MD on 04/21/2022 7:43 PM PDT Station ID: [id number]
--- NOTE | 2022-04-21 19:45 | CT Report ---
PROCEDURE: ANGIO HEAD W/WO INDICATIONS: L sided weakness, slurred speech CONTRAST: IV CONTRAST: Optiray 320 ml: 100 PO CONTRAST: *NO PO CONTRAST TECHNIQUE: Precontrast 4.5 mm thick angled axial sections acquired from the foramen magnum to the vertex. Afte r the administration of intravenous contrast, 1 mm thick sections acquired through the [place] of [place] is. Postcontrast 4.5 mm thick sections then re-acquired from the foramen magnum to the vertex. 3-di mensional ystolms-boriebksd-jtxyjlvqpm (MIP) and/or volume rendering reformats were acquired of the c entral intracranial vasculature. For radiation dose reduction, the following was used: automated ex posure control, adjustment of mA and/or kV according to patient size. COMPARISON: Head CT dated 04/21/2022 FINDINGS: Image quality: Excellent. Anterior circulation: Intracranial internal carotid arteries are normal in size and flow. The flow within the paired anterior cerebral arteries is normal and symmetric. The flow within the middle cer ebral arteries is normal and symmetric. The anterior communicating artery is seen. No aneurysms are seen. Posterior circulation: Visualized portions of the vertebral arteries demonstrate normal caliber, and join to form a normal appearing basilar artery. Near origin of the left posterior cerebral ar enrique. Flow within the posterior cerebral arteries is normal and symmetric. No aneurysms are seen. CSF spaces: Ventricles are normal in size and shape. Basal cisterns are patent. No extra-axial flu id collections. Brain: No midline shift. No intracranial bleeds or masses. Maldonado-white matter interface appears int act. Skull and face: Calvarium and facial bones appear intact, without suspicious lesions. Sinuses: Air-fluid level within the right maxillary sinus. IMPRESSION: 1. No acute process involving the arterial tree of the head and neck. 2. Right maxillary sinus disease. Reviewed by: Jalyn Morillo MD on 04/21/2022 7:44 PM PDT Approved by: Jalyn Morillo MD on 04/21/2022 7:44 PM PDT Station ID: [id number]
[2022-04-21] MEDS ORDERED: ASPIRIN CHEW 81 MG TABLET PO STA (20:27)
[2022-04-21 20:41] LABS: GLUCOSE, URINE (UA) NEGATIVE (NEGATIVE); KETONES,URINE (UA) TRACE mg/dL (NEGATIVE); LEUKOCYTE ESTERASE, URINE NEGATIVE (NEGATIVE); NITRITE,URINE NEGATIVE (NEGATIVE); OCCULT BLOOD,URINE NEGATIVE (NEGATIVE); PH,URINE 5.5 PH (5.0-7.5); PROTEIN,URINE 30 mg/dL (NEGATIVE); UROBILINOGEN,URINE 0.2 (NORMAL) E.U./dL (NORMAL)
[2022-04-21 20:44] LABS: BILIRUBIN,URINE SMALL (NEGATIVE); CLARITY,URINE CLEAR (CLEAR); ICTOTEST,URINE POSITIVE
[2022-04-21] MEDS ORDERED: ONDANSETRON 4 MG/2 ML VIAL IVP PRN (20:48)
[2022-04-21] MEDS ORDERED: ACETAMINOPHEN 325 MG TABLET PO PRN (20:48)
[2022-04-21 20:56] LABS: AMORPHOUS SEDIMENT,UR Few /LPF; BACTERIA,URINE Few /HPF (None Seen); RBC,URINE 0-5 /HPF (0-5); SQUAMOUS EPITHELIAL CELL,UR FEW Squamous (<= Few); WBC,URINE 0-3 /HPF (0-5)
[2022-04-21] MEDS ORDERED: ASPIRIN 300 MG SUPP PR STA (20:57)
--- NOTE | 2022-04-21 21:02 | HISTORY & PHYSICAL EXAMINATION ---
Chief Complaint - Chief Complaint Chief Complaint: Code Stroke, brought in by EMS from home History of Present Illness - Admitted From Admitted From:: ED - History Obtained From History obtained from: ED provider - History of Present Illness HPI Comment/Other: This is an 87-year-old white female that lives with her family. She has a history of COPD on inhalers prn, ulcerative colitis for which she needs occasional bursts of prednisone and she takes azathioprine also. There is a history of hypertension on lisinopril and hypothyroidism on Synthroid. The patient had a recent ulcerative colitis flare and received 7 days of oral prednisone 20 mg daily and her diarrhea and symptoms got better. Today the patient was last seen well at about 3 PM and then went to take a nap. At 6 PM when she awoke she had garbled speech and left-sided weakness. She was brought in by ambulance and arrived 4.5 hours after her last known well. Work-up in the ED with a head CT, and head and neck CTA showed no stroke, no hemorrhage, no major vessel occlusion. There was evidence of some vessel stenosis. Telestroke was not called by the ED service because the family wanted to focus o n comfort and rehab and not consider interventional radiology and declined consideration for tPA. She has dysphasia and dense weakness of the left side. She received Aspirin per rectum. On telemetry she was noted to be in A. fib with RVR at a rate of 130. There is no prior history of A. fib. Her last Echo was done in 2018 which showed LVH and LVEF of 50 to 55%. She has left bundle branch block on EKG, which is an old finding. The ED provider reached out to the Hospitalist team to admit this patient for work-up and management of an acute stroke. I spoke to the daughter who was at bedside regarding the patient's CODE status. There is a POLST form at home. Patient desires to be DNR/DNI. History - Past Medical History Cardiovascular: reports: Hypertension Respiratory: reports: COPD Endocrine/Autoimmune: reports: HyPOthyroidism GI: reports: Colon polyps, Cholelithiasis, Ulcerative colitis SODA DISPENSER: reports: None : reports: None HEENT: reports: Chronic vision loss, Glaucoma Psych: reports: None Musculoskeletal: reports: None Derm: reports: None MRSA Hx?: No - Past Surgical History General: reports: Cholecystectomy, Appendectomy, Colonoscopy Ortho: reports: 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 surgery /SODA DISPENSER: reports: Hysterectomy HEENT: reports: Cataracts - Family & Social History Family History Comment/Other: No diseases run in the family. Living arrangement: At home Living Situation: With family Social History Notes: She is an ex-smoker who quit 20 years ago or more. She drinks no alcohol. - Substance History Use: Uses substance without health or social issues: NONE - POLST Patient has POLST: No Meds/Allgy - Home Medications Home Medications: Ambulatory Orders Medication Instructions Recorded Confirmed Levothyroxine Sodium [Synthroid] 125 mcg PO DAILY 02/08/13 05/28/21 Lisinopril 20 mg PO DAILY 02/08/13 05/28/21 Multivitamin [Multivitamins] 1 each PO DAILY 02/08/13 05/28/21 Albuterol Sulf [Ventolin Hfa 2 - 3 puffs INH Q4HR PRN #1 inhaler 02/06/21 05/28/21 Inhaler] Doxycycline Monohydrate 100 mg PO BID #14 05/28/21 predniSONE [Deltasone] 20 mg PO DAILY #7 tablet 04/12/22 - Allergies Allergies/Adverse Reactions: Allergies Allergy/AdvReac Type Severity Reaction Status Date / Time tetracycline [Tetracycline] AdvReac Nausea Verified 04/12/22 17:49 Review of Systems - Constitutional Constitutional: reports: Weakness - Cardiovascular Cariovascular: reports: Edema (chronic, per daughter) - Musculoskeletal Musculoskeletal: reports: Muscle weakness - Integumentary Integumentary: reports: Other (Blue discoloration of fingers and toes and knees was noted today by the daughter. The patient has had no falls, per daughter.) - All Other Systems All Other Systems: reports: Reviewed and negative (Daughter at bedside provided details) Exam - Vital Signs Vital Signs: Vital Signs x48h Temp Pulse Resp BP Pulse Ox 04/21/22 20:36 111 H 19 109/64 100 04/21/22 20:03 95 19 102/57 L 100 04/21/22 19:01 36.6 C 133 H 22 118/52 L 99 - Physical Exam General Appearance: positive: No acute distress, Alert, Other (L facial droop) Eyes Bilateral: positive: Normal inspection, EOMI ENT: positive: ENT inspection nml, No signs of dehydration Neck: positive: Nml inspection, No JVD Respiratory: positive: No respiratory distress, Breath sounds nml Cardiovascular: positive: No murmur, Irregularly irregular Abdomen: positive: Non-tender, No distention Skin: positive: Warm, Dry, Other (Paper thin skin, and tenting of skin on back of hand noted.) Extremities: positive: Other (Ecchymotic changes of both knees but not fingers or hands. 1+ edema of the lower extremities to the knees.) Neurologic/Psychiatric: positive: Weakness (Dense weakness of L arm and leg (0/5), speaks in one word answers. Cannot assess orientation, but does appear to recognize daughter at bedside.), Other (L facial droop. L arm and leg 0/5 strength, R arm moves spontaneously.) Conclusion/Plan - Problem List (1) Cerebrovascular accident (CVA) Conclusion/Plan: The family declined consideration for tPA or transfer for any interventional radiology procedure. Will place patient on telemetry to manage the A. fib with RVR. Will obtain an Echo with bubble study. Will order MRI brain. Will order neuro checks every 4 hours. Will order a bedside clinical swallowing screen by nursing, and start a dysphagia diet. Will continue with baby aspirin daily or 300 mg per rectum Will start statin (if she can swallow) and obtain fasting lipid panel and treat per guidelines. Will order evaluation by PT, OT and speech therapy. Will order Social Work consult for discharge plan, possible SNF will be needed. Will allow for permissive hypertension for the next 24 to 48 hours, her lis inopril will be on hold. Qualifiers: CVA mechanism: unspecified Qualified Code(s): I63.9 - Cerebral infarction, unspecified (2) Atrial fibrillation with RVR Conclusion/Plan: This appears to be new onset of A. fib, the daughter denies any past cardiac history whatsoever. This Afib is likely the is the cause of the stroke We will place the patient on telemetry. Will obtain an Echocardiogram. Will give meds for rate control. Currently the patient cannot be started on anticoagulant, given the acute stroke, to lessen the risk of hemorrhagic transformation. (3) Hyponatremia Conclusion/Plan: Given the skin tenting on exam, this is probably hypovolemic hyponatremia Will give IV saline hydration slowly, especially since her oral intake will be limited from the dysphagia. Follow BMP daily. (4) HTN (hypertension) Conclusion/Plan: She is normally on lisinopril for blood pressure control. Will allow permissive hypertension for 1-2 days due to the acute CVA therefore her lisinopril will be on hold. (5) Hypothyroidism Conclusion/Plan: We will continue with her usual home dose of Synthroid (if she can swallow), and obtain a TSH with a.m. labs to assure the dose is correct and TSH is in an acceptable range. (6) Leukocytosis Conclusion/Plan: She has a marked bandemia *19%) along with mild white count elevation (14K). Possibly this is demargination from the stress of the stroke since there are no obvious signs of an infection. Will obtain a chest x-ray. Follow CBC daily (7) LBBB (left bundle branch block) Conclusion/Plan: This is an old finding An Echo will be ordered to check for cardiomyopathy (8) COPD without exacerbation Conclusion/Plan: Will continue with as needed nebulizers while here. If oxygen becomes needed, O2 saturations of 88% or higher will be acceptable (9) History of ulcerative colitis Conclusion/Plan: She intermittently takes prednisone and azathioprine for flareups. - Lab Results Fish Bones: 04/21/22 18:08 04/21/22 18:08 - Diagnostic Imaging Results Diagnostic Imaging Results: positive: Final report reviewed - EKG Results EKG Comparison: Changed from prior EKG EKG Findings: Afib, LBBB. Since last EKG done 05/28/21, the Afib is new. - Other Other Results/Comments: Attestation: The patient is expected to be discharged or transferred to another facility for 96 hours: Yes.
[2022-04-21] MEDS: NS W/20 MEQ KCL 1,000 ML IV SCH (22:08)
--- NOTE | 2022-04-21 22:13 | XRAY Report ---
PROCEDURE: Chest 1 View X-Ray INDICATIONS: Hx COPD, has elevated WBC w/ left shift TECHNIQUE: One view of the chest was acquired. COMPARISON: Similar chest plain films from 06/23/2021 and 05/28/2021 are reviewed. FINDINGS: Surgical changes and devices: None. Lungs and pleura: No pleural effusions or pneumothorax. Lungs are unchanged with reduced inspirator y volume on the left to an identical degree as that previously present. There is a mild chronic inter stitial prominence.. Mediastinum: Mediastinal contours appear normal. Heart size is normal. Bones and chest wall: No suspicious bony lesions. Overlying soft tissues appear unremarkable. IMPRESSION: Chronic mild interstitial prominence, presumably related to prior lung scarring which is greater on t he left than the right with associated stable appearing mild reduction in left pulmonary aeration. Reviewed by: Fidel Johnson MD on 04/21/2022 10:12 PM PDT Approved by: Fidel Johnson MD on 04/21/2022 10:12 PM PDT Station ID: [id number]
[2022-04-21] MEDS: METOPROLOL 5 MG/5 ML VIAL IVP SCH (22:33)
[2022-04-21] MEDS ORDERED: ACETAMINOPHEN 1,000 MG/100 ML 1,000 MG/100 ML BAG IV PRN (23:04)
[2022-04-22] MEDS: SODIUM CHLORIDE FLUSH 0.9% 10 ML SYRINGE IVP SCH ×3 (01:41→21:55)
[2022-04-22 06:00] LABS: BASOPHILS % (AUTO) 0.2 %; HCT - HEMATOCRIT 26.1 % (37.0-47.0); HGB - HEMOGLOBIN 8.7 g/dL (12.0-16.0); LYMPHOCYTES % (AUTO) 27.7 %; MEAN CORPUSCULAR HEMOGLOBIN 30.1 pg (27.0-31.0); MEAN CORPUSCULAR HGB CONC 33.3 g/dL (32.0-36.0); MEAN CORPUSCULAR VOLUME 90.3 fL (81.0-99.0); MEAN PLATELET VOLUME 8.6 fL (7.9-10.8); NEUTROPHILS % (AUTO) 64.2 %; PLT - PLATELET COUNT 332 10^3/uL (130-450); RED BLOOD COUNT 2.89 10^6/uL (4.20-5.40); RED CELL DISTRIBUTION WIDTH 14.6 % (12.0-15.0)
[2022-04-22 06:06] LABS: ABNORMAL LYMPHS % (MANUAL) 0 %
[2022-04-22] MEDS: METOPROLOL 5 MG/5 ML VIAL IVP SCH ×3 (06:11→21:48)
[2022-04-22 06:16] LABS: BUN - BLOOD UREA NITROGEN 33 mg/dL (6-20); CARBON DIOXIDE - CO2 20 mmol/L (21-32); CHLORIDE 101 mmol/L (101-111); CHOL/HDL RATIO 2.4 (<4.4); CHOLESTEROL 113 mg/dL; CREATININE 0.7 mg/dL (0.4-1.0); GFR - MDRD 79 (>89); GLUCOSE 118 mg/dL (70-100); HDL CHOLESTEROL 47 mg/dL; LDL CHOLESTEROL,CALCULATED 51 mg/dL; LDL/HDL RATIO 1.1 (<4.4); MAGNESIUM 2.1 mg/dL (1.7-2.8); PHOSPHORUS 2.5 mg/dL (2.5-4.6); POTASSIUM 3.7 mmol/L (3.5-5.0); SODIUM 130 mmol/L (135-145); TRIGLYCERIDES 73 mg/dL; VLDL CHOLESTEROL 15 mg/dL
[2022-04-22 06:21] LABS: BAND NEUTROPHILS % (MANUAL) 3 %; DIFFERENTIAL COMMENT MANUAL DIFFERENTIAL; LYMPHOCYTES % (MANUAL) 25 %; MONOCYTES # (MANUAL) 0.7 10^3/uL (0.0-1.0); MYELOCYTES % (MANUAL) 1 %; NEUTROPHILS # (MANUAL) 5.2 10^3/uL (1.5-6.6); PLATELET ESTIMATE, MANUAL NORMAL (130-450,000) (NORMAL); PLATELET MORPHOLOGY NORMAL APPEARANCE (NORMAL); RBC MORPHOLOGY (MULTIPLE) 1+ HYPOCHROMASIA (NORMAL); WBC MORPHOLOGY (MULTIPLE) NORMAL APPEARANCE (NORMAL)
--- NOTE | 2022-04-22 07:30 | PROVIDER PROGRESS NOTE ---
Assessment/Plan - Problem List (1) Cerebrovascular accident (CVA) Qualifiers: CVA mechanism: unspecified Qualified Code(s): I63.9 - Cerebral infarction, unspecified Assessment/Plan: Patient has significant left sided deficits. This include left facial droop, left upper and lower extremity weakness. Speech is also garbled. MRI brain pending. 2D echocardiogram pending. PT, OT and speech evaluations pending. Patient will likely need placement at halfway facility for rehab. Social work to help facilitate the process. We will continue baby aspirin daily. Start a statin when the patient is able to swallow. Continue to allow permissive hypertension. Patient's lisinopril held. (2) Atrial fibrillation Assessment/Plan: New onset. Not in rapid ventricular rhythm currently. On metoprolol 2.5 mg IV every 8 hours. Anticoagulant not initiated yet given recent stroke and risk of possible hemorrhagic conversion (3) COPD (chronic obstructive pulmonary disease) Assessment/Plan: DuoNeb every 4 hours as needed (4) HTN (hypertension) Assessment/Plan: Lisinopril currently held. Allowing permissive hypertension for CVA. However patient has been receiving metoprolol 2.5 mg IV every 8 hours for A. fib with RVR. (5) History of ulcerative colitis Assessment/Plan: Intermittently on prednisone and azathioprine for flareups. (6) Hypothyroidism Assessment/Plan: On Synthroid 125 mcg p.o. daily. (7) Leukocytosis Assessment/Plan: Resolved. WBC 8. This was likely reactive. - Current Meds Current Meds: Current Medications Generic Name Dose Route Start Last Admin Trade Name Freq PRN Reason Stop Dose Admin Potassium Chloride/Sodium Chloride 1,000 mls @ 60 mls/hr 04/21/22 21:00 04/21/22 22:08 Normal Saline 0.9% W/20 Meq Kcl IV 60 mls/hr .[id number] IVANA Administration Metoprolol Tartrate 2.5 mg 04/21/22 22:00 04/22/22 06:11 Metoprolol 5 Mg/5 Ml Vial IVP 2.5 mg Q8H IVANA Administration Sodium Chloride 10 ml 04/22/22 01:00 04/22/22 01:41 Sodium Chloride Flush 0.9% 10 Ml Syringe IVP 10 ml 0100,0900,1700 IVANA Administration - Lab Result Fish Bone Diagrams: 04/22/22 05:40 04/22/22 05:40 Subjective - Subjective Patient Reports: Other (Patient was awake, alert and oriented X3 at time of exam. Her speech is very garbled. She has 1/5 left upper extremity strength and 2/5 left lower extremity strength. Left facial droop also appreciable.) Objective Vital Signs: Vital Signs - 24 hr 04/21/22 04/21/22 04/21/22 19:01 20:03 20:36 Temperature 36.6 C Heart Rate 133 H 95 111 H Heart Rate [ Brachial] Heart Rate [ Monitoring electrodes] Respiratory 22 19 19 Rate Blood Pressure 118/52 L 102/57 L 109/64 Blood Pressure [Right Brachial artery] O2 Saturation 99 100 100 04/21/22 04/21/22 04/21/22 22:00 22:33 22:37 Temperature 36.7 C Heart Rate Heart Rate [ 110 H Brachial] Heart Rate [ 102 H Monitoring electrodes] Respiratory 16 Rate Blood Pressure 107/52 L Blood Pressure 112/73 101/39 L [Right Brachial artery] O2 Saturation 99 04/21/22 04/21/22 04/21/22 22:45 22:50 23:02 Temperature Heart Rate Heart Rate [ Brachial] Heart Rate [ 76 86 73 Monitoring electrodes] Respiratory Rate Blood Pressure Blood Pressure 94/40 L 103/39 L 91/38 L [Right Brachial artery] O2 Saturation 04/21/22 04/21/22 04/22/22 23:16 23:32 03:26 Temperature 36.7 C 36.4 C L Heart Rate Heart Rate [ Brachial] Heart Rate [ 85 77 83 Monitoring electrodes] Respiratory 16 16 Rate Blood Pressure Blood Pressure 82/48 L 105/47 L 110/42 L [Right Brachial artery] O2 Saturation 97 96 04/22/22 04/22/22 06:11 07:15 Temperature 36.4 C L Heart Rate Heart Rate [ Brachial] Heart Rate [ 83 Monitoring electrodes] Respiratory 20 Rate Blood Pressure 127/58 L Blood Pressure 124/90 H [Right Brachial artery] O2 Saturation 97 Oxygen O2 Source Room air I&O (Last 24 Hrs): Intake and Output Totals x24h 04/20/22 04/21/22 04/22/22 23:59 23:59 23:59 Intake Total 495 Output Total 0 Balance 495 General: Alert, Oriented x3 HEENT: PERRLA, EOMI Neck: Supple, No JVD Neuro: Focal Deficits (left facial droop, left upper and lower extremity weakness) Cardiovascular: Regular rate, Other (iregularly iregular rhythm) Respiratory: Chest non-tender, No respiratory distress, Breath sounds nml Abdomen: Soft Extremities: No clubbing, No cyanosis, No edema, No tenderness/swelling Skin: No rashes, No breakdown, No significant lesion - Results Results: Laboratory Results WBC 8.0 x10^3/uL (4.8-10.8) 04/22/22 05:40 RBC 2.89 10^6/uL (4.20-5.40) L 04/22/22 05:40 Hgb 8.7 g/dL (12.0-16.0) L 04/22/22 05:40 Hct 26.1 % (37.0-47.0) L 04/22/22 05:40 MCV 90.3 fL (81.0-99.0) 04/22/22 05:40 MCH 30.1 pg (27.0-31.0) 04/22/22 05:40 MCHC 33.3 g/dL (32.0-36.0) 04/22/22 05:40 RDW 14.6 % (12.0-15.0) 04/22/22 05:40 Plt Count 332 10^3/uL (130-450) 04/22/22 05:40 MPV 8.6 fL (7.9-10.8) 04/22/22 05:40 Neut # (Auto) Not Reportable 04/22/22 05:40 Lymph # (Auto) Not Reportable 04/22/22 05:40 [place] # (Auto) Not Reportable 04/22/22 05:40 Eos # (Auto) Not Reportable 04/22/22 05:40 Baso # (Auto) Not Reportable 04/22/22 05:40 Absolute Nucleated RBC Not Reportable 04/22/22 05:40 Total Counted 100 04/22/22 05:40 Band Neuts % (Manual) 3 % (0-10) 04/22/22 05:40 Reactive Lymphs % (Man) 2 % 04/21/22 18:08 Abnorm Lymph % (Manual) 0 % 04/22/22 05:40 Myelocytes % 1 % (-0) H 04/22/22 05:40 Nucleated RBC % Not Reportable 04/22/22 05:40 Neutrophils # (Manual) 5.2 10^3/uL (1.5-6.6) 04/22/22 05:40 Lymphocytes # (Manual) 2.0 10^3/uL (1.5-3.5) 04/22/22 05:40 Monocytes # (Manual) 0.7 10^3/uL (0.0-1.0) 04/22/22 05:40 Eosinophils # (Manual) 0.0 10^3/uL (0-0.7) 04/22/22 05:40 Basophils # (Manual) 0.0 10^3/uL (0-0.1) 04/22/22 05:40 Differential Comment MANUAL DIFFERENTIAL 04/22/22 05:40 WBC Morphology NORMAL APPEARANCE (NORMAL) 04/22/22 05:40 Platelet Estimate NORMAL (130-450,000) (NORMAL) 04/22/22 05:40 Platelet Morphology NORMAL APPEARANCE (NORMAL) 04/22/22 05:40 RBC Morph Micro Appear 1+ HYPOCHROMASIA (NORMAL) 04/22/22 05:40 Sodium 130 mmol/L (135-145) L 04/22/22 05:40 Potassium 3.7 mmol/L (3.5-5.0) 04/22/22 05:40 Chloride 101 mmol/L (101-111) 04/22/22 05:40 Carbon Dioxide 20 mmol/L (21-32) L 04/22/22 05:40 Anion Gap 9.0 (6-13) 04/22/22 05:40 BUN 33 mg/dL (6-20) H 04/22/22 05:40 Creatinine 0.7 mg/dL (0.4-1.0) 04/22/22 05:40 Estimated GFR (MDRD) 79 (>89) L 04/22/22 05:40 Glucose 118 mg/dL (70-100) H 04/22/22 05:40 Calcium 8.0 mg/dL (8.5-10.3) L 04/22/22 05:40 Phosphorus 2.5 mg/dL (2.5-4.6) 04/22/22 05:40 Magnesium 2.1 mg/dL (1.7-2.8) 04/22/22 05:40 Total Bilirubin 0.4 mg/dL (0.2-1.0) 04/21/22 18:08 AST 26 IU/L (10-42) 04/21/22 18:08 ALT 24 IU/L (10-60) 04/21/22 18:08 Alkaline Phosphatase 63 IU/L (42-121) 04/21/22 18:08 Total Protein 6.6 g/dL (6.7-8.2) L 04/21/22 18:08 Albumin 2.8 g/dL (3.2-5.5) L 04/21/22 18:08 Globulin 3.8 g/dL (2.1-4.2) 04/21/22 18:08 Albumin/Globulin Ratio 0.7 (1.0-2.2) L 04/21/22 18:08 Triglycerides 73 mg/dL (-149) 04/22/22 05:40 Cholesterol 113 mg/dL (-199) 04/22/22 05:40 LDL Cholesterol, Calc 51 mg/dL (-129) 04/22/22 05:40 VLDL Cholesterol 15 mg/dL 04/22/22 05:40 HDL Cholesterol 47 mg/dL (60-) L 04/22/22 05:40 LDL/HDL Ratio 1.1 (<4.4) 04/22/22 05:40 Cholesterol/HDL Ratio 2.4 (<4.4) 04/22/22 05:40 Lipase 40 U/L (22-51) 04/21/22 18:08 TSH 3.00 uIU/mL (0.34-5.60) 04/22/22 05:40 Urine Color YELLOW 04/21/22 20:30 Urine Clarity CLEAR (CLEAR) 04/21/22 20:30 Urine pH 5.5 PH (5.0-7.5) 04/21/22 20:30 Ur Specific [place] 1.010 (1.002-1.030) 04/21/22 20:30 Urine Protein 30 mg/dL (NEGATIVE) H 04/21/22 20:30 Urine Glucose (UA) NEGATIVE mg/dL (NEGATIVE) 04/21/22 20:30 Urine Ketones TRACE mg/dL (NEGATIVE) 04/21/22 20:30 Urine Occult Blood NEGATIVE (NEGATIVE) 04/21/22 20:30 Urine Nitrite NEGATIVE (NEGATIVE) 04/21/22 20:30 Urine Bilirubin SMALL (NEGATIVE) H 04/21/22 20:30 Urine Urobilinogen 0.2 (NORMAL) E.U./dL (NORMAL) 04/21/22 20:30 Ur Leukocyte Esterase NEGATIVE (NEGATIVE) 04/21/22 20:30 Urine RBC 0-5 /HPF (0-5) 04/21/22 20:30 Urine WBC 0-3 /HPF (0-5) 04/21/22 20:30 Ur Squamous Epith Cells FEW Squamous (<= Few) 04/21/22 20:30 Amorphous Sediment Few /LPF 04/21/22 20:30 Urine Bacteria Few /HPF (None Seen) 04/21/22 20:30 Ur Microscopic Review INDICATED 04/21/22 20:30 Urine Culture Comments NOT INDICATED 04/21/22 20:30 SARS-CoV-2 (PCR) NOT DETECTED 04/21/22 20:56 - Procedures Procedures: Procedures EXCISION OF LARGE INTESTINE, ENDO, DIAGN (05/13/18) EXCISION OF RECTUM, ENDO, DIAGN (05/13/18)
[2022-04-22] MEDS ORDERED: LEVOTHYROXINE 125 MCG TABLET PO SCH (09:00)
[2022-04-22] MEDS ORDERED: ASPIRIN EC 81 MG TABLET PO SCH (09:00)
[2022-04-22] MEDS: ASPIRIN 300 MG SUPP PR SCH (11:14)
--- NOTE | 2022-04-22 12:14 | PHARMACY PROGRESS NOTE ---
- Best Possible Medication History Admit Date and Time: 04/21/222047 Processed by: Pharmacy Medication History completed: Yes Patient Interview: Pt unable to participate Secondary Source(s): Insurance records, Previous admit records As the person ultimately responsible for medication therapy, providers are able to order a medication from an existing home medication list in [facility] via the "Reconcile Routine" prior to Confirmation of that medication by computer customer support specialist. Such practice is discouraged except when the physician, in their clinical judgment, deems that a medical need exists for a medication without regard to previous use.
[2022-04-22] MEDS: SODIUM CHLORIDE FLUSH 0.9% 10 ML SYRINGE IVP PRN ×2 (12:53→14:39)
--- NOTE | 2022-04-22 13:23 | MRI Report ---
PROCEDURE: Brain W/O INDICATIONS: CVA TECHNIQUE: Noncontrast axial T1 spin echo, axial T2 fast spin echo, sagittal and axial FLAIR, coronal T2 fast sp in echo, axial gradient echo, axial diffusion and ADC through the brain. COMPARISON: None. FINDINGS: Image quality: Excellent. CSF Spaces: Basal cisterns are patent. No extra-axial fluid collections. Ventricles are normal in size and shape. Brain: No intracranial masses or hemorrhage. Maldonado/white matter interface is normal. Brainstem appe ars normal. Diffusion-weighted images small foci of elevated signal intensity within the right insul a, the right posterolateral frontal lobe cortex, as well as the right mid green radiata, which demon strates moderate FLAIR signal elevation. There is moderate diffuse cerebral volume loss. Mild degree of patchy high FLAIR signal within the periventricular and subcortical white matter. No chronic ische law insults. Normal intravascular flow voids are present. Skull and face: Calvarium has normal marrow signal. Orbits appear normal. Sinuses: Moderate right maxillary sinus mucosal thickening. Mastoids clear. IMPRESSION: 1. Small subacute infarcts within the right green radiata, right posterolateral frontal lobe cortex, and right insula. 2. Volume loss and small vessel ischemic disease. Reviewed by: Jalyn Morillo MD on 04/22/2022 1:22 PM PDT Approved by: Jalyn Morillo MD on 04/22/2022 1:22 PM PDT Station ID: [id number]
[2022-04-22] MEDS: NS W/20 MEQ KCL 1,000 ML IV SCH (14:51)
[2022-04-23] MEDS: SODIUM CHLORIDE FLUSH 0.9% 10 ML SYRINGE IVP SCH ×3 (01:40→19:19)
[2022-04-23 05:28] LABS: BASOPHILS % (AUTO) 0.5 %; EOSINOPHILS % (AUTO) 0.3 %; HCT - HEMATOCRIT 28.1 % (37.0-47.0); HGB - HEMOGLOBIN 9.1 g/dL (12.0-16.0); LYMPHOCYTES % (AUTO) 31.8 %; MEAN CORPUSCULAR HEMOGLOBIN 30.7 pg (27.0-31.0); MEAN CORPUSCULAR HGB CONC 32.4 g/dL (32.0-36.0); MEAN CORPUSCULAR VOLUME 94.9 fL (81.0-99.0); MEAN PLATELET VOLUME 9.1 fL (7.9-10.8); MONOCYTES # (AUTO) 0.5 10^3/uL (0.0-1.0); MONOCYTES % (AUTO) 8.3 %; NEUTROPHILS # (AUTO) 3.6 10^3/uL (1.5-6.6); NEUTROPHILS % (AUTO) 58.1 %; PLT - PLATELET COUNT 311 10^3/uL (130-450); RED BLOOD COUNT 2.96 10^6/uL (4.20-5.40); RED CELL DISTRIBUTION WIDTH 14.7 % (12.0-15.0); WHITE BLOOD COUNT 6.1 x10^3/uL (4.8-10.8)
[2022-04-23 05:36] LABS: CREATININE 0.6 mg/dL (0.4-1.0)
[2022-04-23 05:44] LABS: CALCIUM 7.7 mg/dL (8.5-10.3); POTASSIUM 3.9 mmol/L (3.5-5.0)
[2022-04-23] MEDS: METOPROLOL 5 MG/5 ML VIAL IVP SCH ×3 (07:07→21:32)
[2022-04-23] MEDS: NS W/20 MEQ KCL 1,000 ML IV SCH ×2 (07:08→19:19)
[2022-04-23] MEDS: ASPIRIN 300 MG SUPP PR SCH (08:17)
[2022-04-23] MEDS: ZINC OXIDE 20% OINT 30 GM TUBE TOP PRN (08:21)
--- NOTE | 2022-04-23 10:29 | PROVIDER PROGRESS NOTE ---
Subjective - Prog Note Date Prog Note Date: 04/23/22 Prog Note Time: 10:26 - Subjective Subjective: She is laying in bed with her eyes open. She tracks me as I walk in the room. I asked how she is doing and she raises her good hand and levels that off to then go up and down without saying "I am okay". Speech therapy has seen her and she is to be on ice only but very carefully given. Head of bed needs to be elevated. The signout that I received on her is that she came in with aphasia, left arm and leg weakness, and was unable to speak. By the second day she was able to say 1 word. Today is 3 days and she has now clearly answer my question and stated it in a sentence. She denies chest pain, palpitations, shortness of breath. She says that she is just "I am very tired". Current Medications - Current Medications Current Medications: Active Medications Albuterol/Ipratropium (Ipratropium/Albuterol 3 Ml Neb) 3 ml INH Q4HR PRN PRN Reason: Wheezing Aspirin (Aspirin 300 Mg Supp) 300 mg DE DAILY IVANA Last Admin: 04/23/22 08:17 Dose: 300 mg Potassium Chloride/Sodium Chloride (Normal Saline 0.9% W/20 Meq Kcl) 1,000 mls @ 100 mls/hr IV .Q10H [facility] Last Admin: 04/23/22 07:08 Dose: 60 mls/hr Acetaminophen (Acetaminophen) 1,000 mg in 100 mls @ 400 mls/hr IV Q6HR PRN PRN Reason: Pain or Fever > 38C (100.4F) Levothyroxine Sodium (Levothyroxine 100 Mcg Vial) 200 mcg IVP MoTh IVANA Metoprolol Tartrate (Metoprolol 5 Mg/5 Ml Vial) 2.5 mg IVP Q8H IVANA Last Admin: 04/23/22 07:07 Dose: Not Given Mineral Oil (Min Oil/Dimethicon/Coconut Oil 92 Gm Tube) 1 applic TOP PRN PRN PRN Reason: Skin Care Multi-Ingredient Ointment (Zinc Oxide 20% Oint 30 Gm Tube) 1 applic TOP PRN PRN PRN Reason: Skin Care Last Admin: 04/23/22 08:21 Dose: 1 applic Ondansetron HCl (Ondansetron 4 Mg/2 Ml Vial) 4 mg IVP Q6HR PRN PRN Reason: Nausea / Vomiting Sodium Chloride (Sodium Chloride Flush 0.9% 10 Ml Syringe) 10 ml IVP PRN PRN PRN Reason: NEEDED PER PROVIDER ORDERS Last Admin: 04/22/22 14:39 Dose: 10 ml Sodium Chloride (Sodium Chloride Flush 0.9% 10 Ml Syringe) 10 ml IVP 0100,0900,1700 IVANA Last Admin: 04/23/22 08:17 Dose: Not Given Levothyroxine Sodium [Synthroid] 125 mcg PO QDAC 02/08/13 Lisinopril 20 mg PO DAILY 02/08/13 Multivitamin [Multivitamins] 1 each PO DAILY 02/08/13 Latanoprost 0.005% Ophth Drops [Xalatan Ophth Drops] 1 drops EACHEYE QPM 04/22/22 Mesalamine [Asacol Hd] 1,600 mg PO TID 04/22/22 Timolol 0.5% Ophth Drops [Timoptic 0.5% Ophth Drops] 1 drops EACHEYE BID 04/22/22 Tiotropium Lamar [Spiriva Handihaler] 18 mcg INH DAILY 04/22/22 azaTHIOprine [Azathioprine] 100 mg PO DAILY 04/22/22 Objective - Vital Signs/Intake & Output Reviewed Vital Signs: Yes Vital Signs: Vital Signs x48h Temp Pulse Resp BP BP Pulse Ox 04/23/22 07:46 36.8 C 78 18 136/94 H 96 04/23/22 07:07 126/54 L 04/23/22 05:00 36.9 C 67 18 145/100 H 98 Intake & Output: Intake & Output 04/20/22 04/21/22 04/22/22 04/23/22 23:59 23:59 23:59 23:59 Intake Total 495 918 977 Output Total 0 50 0 Balance 495 868 977 - Objective General Appearance: positive: No acute distress, Other (Sleepy, left facial droop, severely slurred speech, but interactive. Laying quietly in bed) Eyes Bilateral: positive: PERRL, EOMI ENT: positive: Dry mucous membranes Neck: positive: No JVD. negative: Stiff neck Respiratory: positive: No respiratory distress, Other (Slow, unlabored, shallow respiration). negative: Wheezes, Rales, Rhonchi Cardiovascular: positive: Regular rate & rhythm (She converted to normal sinus rhythm this morning). negative: Gallop/S4, Friction rub Abdomen: positive: Non-tender, No organomegaly, Nml bowel sounds, No distention Skin: positive: Warm, Dry, Pallor Extremities: positive: No pedal edema. negative: Full ROM (Left arm and left leg barely mobile) Neurologic/Psychiatric: positive: Disoriented to place, Disoriented to time, Facial droop, Slurred/abnml speech, Other (Left arm is able to be lifted off the bed but cannot be used for mobility, left leg can move on the bed but cannot be lifted off the bed). negative: CN's nml (2-12), Motor nml - Lab Results Fish Bones: 04/23/22 05:14 04/23/22 05:14 Other Labs: Lab Results x24hrs 04/23/22 04/23/22 Range/Units 05:14 05:14 WBC 6.1 (4.8-10.8) x10^3/uL RBC 2.96 L (4.20-5.40) 10^6/uL Hgb 9.1 L (12.0-16.0) g/dL Hct 28.1 L (37.0-47.0) % MCV 94.9 (81.0-99.0) fL MCH 30.7 (27.0-31.0) pg MCHC 32.4 (32.0-36.0) g/dL RDW 14.7 (12.0-15.0) % Plt Count 311 (130-450) 10^3/uL MPV 9.1 (7.9-10.8) fL Neut # (Auto) 3.6 (1.5-6.6) 10^3/uL Lymph # (Auto) 2.0 (1.5-3.5) 10^3/uL [place] # (Auto) 0.5 (0.0-1.0) 10^3/uL Eos # (Auto) 0.0 (0.0-0.7) 10^3/uL Baso # (Auto) 0.0 (0.0-0.1) 10^3/uL Absolute Nucleated RBC 0.00 x10^3/uL Nucleated RBC % 0.0 /100WBC Sodium 133 L (135-145) mmol/L Potassium 3.9 (3.5-5.0) mmol/L Chloride 106 (101-111) mmol/L Carbon Dioxide 17 L (21-32) mmol/L Anion Gap 10.0 (6-13) BUN 25 H (6-20) mg/dL Creatinine 0.6 (0.4-1.0) mg/dL Estimated GFR (MDRD) 94 (>89) Glucose 80 (70-100) mg/dL Calcium 7.7 L (8.5-10.3) mg/dL Assessment/Plan - Problem List (1) Cerebrovascular accident (CVA) Impression: Patient presented as significant left sided deficits. This included left facial droop, left upper and lower extremity weakness. Speech is also garbled. those have slightly improved w speech and limbs are very slightly more mobile but still very weak. MRI shows small acute infarcts within the right green radiata, right posterolateral frontal lobe cortex, and right insula. Volume loss and small vessel ischemic changes seen. Echocardiogram has been ordered. Hopefully will be done today. The test is done according to availability of an soils technician. Physical therapy, Occupational Therapy, and speech evaluations Have been done. Speech is recommending ice only. She has significant dysphagia. Physical therapy is recommending detention facility placement for rehab. Social work to help facilitate the process. Plan is currently dc tomorrow to SNF. We will continue baby aspirin daily. Start a statin when the patient is able to swallow. Continue to allow permissive hypertension. Patient's lisinopril held. I will discuss with family about her significant dysphagia. Do they want a temporary Dobbhoff feeding tube in place? (2) Atrial fibrillation resolved. Assessment/Plan: Was new onset. Was not in rapid ventricular rhythm. On metoprolol 2.5 mg IV every 8 hours. Anticoagulant not initiated yet, given recent stroke and risk of possible hemorrhagic conversion I will also discuss with daughter what the future goals are and there may be no anticoagulation depending on that. (3) COPD (chronic obstructive pulmonary disease) without exacerbation Assessment/Plan: DuoNeb every 4 hours as needed (4) HTN (hypertension) Assessment/Plan: Lisinopril currently held. Allowing permissive hypertension for CVA. Her blood pressures been in the 120's and 130 systolic. However patient has been receiving metoprolol 2.5 mg IV every 8 hours for A. fib with RVR. (5) History of ulcerative colitis Assessment/Plan: Intermittently on prednisone and azathioprine for flareups. (6) Hypothyroidism Assessment/Plan: On Synthroid 200 mcg IV on Mondays and since she cannot take p.o. (7) Leukocytosis Assessment/Plan: Resolved. WBC 8. This was likely reactive. Qualifiers: Qualified Code(s): I63.9 - Cerebral infarction, unspecified
--- NOTE | 2022-04-23 10:42 | Discharge Plan ---
"Discharge Plan for SNF / [facility] - Discharge Plan And Transition Orders Problem Reviewed?: Yes Disposition: 03 SNF DC/Xfer Condition: Stable Allergies and Adverse Reactions: Allergies Allergy/AdvReac Type Severity Reaction Status Date / Time tetracycline [Tetracycline] AdvReac Nausea Verified 04/12/22 17:49 Health Concerns: She is an 87-year-old white female who lives with her daughter, has ulcerative colitis, stable COPD, hypertension who went to take a nap at 3:00 and woke up at 6 PM with left-sided stroke. She was found to be in new onset atrial fibrillation in the emergency room. MRI confirms 3 areas of small embolic strokes on the right brain. She is converted to normal sinus rhythm on her own. She has significant dysphagia, dysarthria and left-sided body weakness. - SNF / [facility] Transition Orders Admit to (Facility): [facility] Under the care of (Name): Lety Best Discharge Diagnosis: 1. Right brain embolic strokes 2. New onset atrial fibrillation 3. Left body hemiplegia with dysarthria dysphagia 4. Ulcerative colitis 5. COPD 6. Hypertension Medicare Certification Statement: I certify that Post Hospital custodial care is medically necessary on a continuing basis for any of the conditions for which she/he is receiving care during hospitalization. Notify PCP of admission and forward orders to primary provider for signature. Weight on admission and: Weekly Other Notification Orders: Call PCP immediately if patient develops dyspnea, chest pain/tightness or edema. House Bowel Program: Yes Additional Bowel Program Orders: If no BM after 2 days, nurse may give M.O.M. 30ml PO PRN and/or ducolax Supp 1 NH and/or SEKOU 250mg P.O., and/or senna 1-2 tabs PO. On day 3 nurse may give repeat above order until residents constipation is resolved. Annual Influenza Vaccine (between Apr 25 and November 22): Yes Medication Orders: PLEASE REFER TO THE DISCHARGE MEDICATION LIST. Insulin Orders?: No - Diet May have monthly special meal: No - Therapies | Activity Therapy: Evaluation | Treat if indicated: Speech, PT, OT, Swallowing / ST Activity: Activity as Tolerated Weight Bearing: Full Weight Assistance Devices: Wheelchair, Walker"
[2022-04-23] MEDS: SODIUM CHLORIDE FLUSH 0.9% 10 ML SYRINGE IVP PRN (14:57)
[2022-04-24] MEDS: MIN OIL/DIMETHICON/COCONUT OIL 92 GM TUBE TOP PRN ×3 (00:54→04:54)
[2022-04-24] MEDS: SODIUM CHLORIDE FLUSH 0.9% 10 ML SYRINGE IVP SCH ×3 (00:55→17:03)
[2022-04-24] MEDS: NS W/20 MEQ KCL 1,000 ML IV SCH ×2 (04:54→17:43)
[2022-04-24] MEDS: METOPROLOL 5 MG/5 ML VIAL IVP SCH (06:17)
[2022-04-24] MEDS: SODIUM CHLORIDE FLUSH 0.9% 10 ML SYRINGE IVP PRN (06:18)
[2022-04-24] MEDS: ASPIRIN 300 MG SUPP PR SCH (09:20)
[2022-04-24 12:47] LABS: CALCIUM 8.1 mg/dL (8.5-10.3); CREATININE 0.5 mg/dL (0.4-1.0); POTASSIUM 4.1 mmol/L (3.5-5.0)
--- NOTE | 2022-04-24 13:02 | PROVIDER PROGRESS NOTE ---
Subjective - Prog Note Date Prog Note Date: 04/24/22 Prog Note Time: 12:59 - Subjective Subjective: She tells me she is not in any pain. She knows where she is and why she just does not know the date. Speech has improved even more from yesterday to today. Strength is also improved from yesterday to today. Diet was progressed and advanced last night after speech therapy saw her. She is able to go to moist pure. Has a tiny bit of coughing with it and problems with thin liquids. But speech is posting instructions with nursing and aides that we follow instructions and make sure you reduce her risk of aspiration. Current Medications - Current Medications Current Medications: Active Medications Albuterol/Ipratropium (Ipratropium/Albuterol 3 Ml Neb) 3 ml INH Q4HR PRN PRN Reason: Wheezing Aspirin (Aspirin Ec 81 Mg Tablet) 81 mg PO DAILY IVANA Atorvastatin Calcium (Atorvastatin 40 Mg Tablet) 40 mg PO QPM IVANA Potassium Chloride/Sodium Chloride (Normal Saline 0.9% W/20 Meq Kcl) 1,000 mls @ 100 mls/hr IV .Q10H IVANA Last Admin: 04/24/22 04:54 Dose: 100 mls/hr Acetaminophen (Acetaminophen) 1,000 mg in 100 mls @ 400 mls/hr IV Q6HR PRN PRN Reason: Pain or Fever > 38C (100.4F) Levothyroxine Sodium (Levothyroxine 125 Mcg Tablet) 125 mcg PO QDAC IVANA Metoprolol Succinate (Metoprolol Succinate 25 Mg Tablet) 25 mg PO DAILY IVANA Mineral Oil (Min Oil/Dimethicon/Coconut Oil 92 Gm Tube) 1 applic TOP PRN PRN PRN Reason: Skin Care Last Admin: 04/24/22 04:54 Dose: 1 applic Multi-Ingredient Ointment (Zinc Oxide 20% Oint 30 Gm Tube) 1 applic TOP PRN PRN PRN Reason: Skin Care Last Admin: 04/23/22 08:21 Dose: 1 applic Ondansetron HCl (Ondansetron 4 Mg/2 Ml Vial) 4 mg IVP Q6HR PRN PRN Reason: Nausea / Vomiting Sodium Chloride (Sodium Chloride Flush 0.9% 10 Ml Syringe) 10 ml IVP PRN PRN PRN Reason: NEEDED PER PROVIDER ORDERS Last Admin: 04/24/22 06:18 Dose: 10 ml Sodium Chloride (Sodium Chloride Flush 0.9% 10 Ml Syringe) 10 ml IVP 0100,0900,1700 IVANA Last Admin: 04/24/22 09:20 Dose: Not Given Levothyroxine Sodium [Synthroid] 125 mcg PO QDAC 02/08/13 Lisinopril 20 mg PO DAILY 02/08/13 Multivitamin [Multivitamins] 1 each PO DAILY 02/08/13 Latanoprost 0.005% Ophth Drops [Xalatan Ophth Drops] 1 drops EACHEYE QPM 04/22/22 Mesalamine [Asacol Hd] 1,600 mg PO TID 04/22/22 Timolol 0.5% Ophth Drops [Timoptic 0.5% Ophth Drops] 1 drops EACHEYE BID 04/22/22 Tiotropium [place] [Spiriva Handihaler] 18 mcg INH DAILY 04/22/22 azaTHIOprine [Azathioprine] 100 mg PO DAILY 04/22/22 Objective - Vital Signs/Intake & Output Reviewed Vital Signs: Yes Vital Signs: Vital Signs x48h Temp Pulse Pulse Resp BP BP Pulse Ox 04/24/22 11:22 36.3 C L 71 20 133/46 H 95 04/24/22 07:46 36.8 C 85 18 153/50 H 97 04/24/22 07:30 85 152/52 H 04/24/22 07:17 83 145/76 H 04/24/22 07:00 79 129/58 L 04/24/22 06:45 63 130/51 L 04/24/22 06:39 82 131/48 H 04/24/22 06:34 66 143/60 H 04/24/22 06:29 63 136/58 H 04/24/22 06:17 136/60 H 04/24/22 06:16 76 136/60 H Intake & Output: Intake & Output 04/21/22 04/22/22 04/23/22 04/24/22 23:59 23:59 23:59 23:59 Intake Total 844 456 1348.667 786.667 Output Total 0 50 550 Balance 230 100 5328.667 786.667 - Objective General Appearance: positive: No acute distress, Alert, Other (Very clearly able to articulate any discomfort, and what she wants to myself and to nursing.) Eyes Bilateral: positive: PERRL, EOMI ENT: positive: No signs of dehydration Neck: positive: No JVD. negative: Stiff neck Respiratory: positive: No respiratory distress, Rhonchi (Right upper lung, clear with cough.). negative: Wheezes, Rales Cardiovascular: positive: Irregularly irregular. negative: Gallop/S4, Friction rub Abdomen: positive: Non-tender, No organomegaly, Nml bowel sounds, No distention, Other (Frequent brown stool, almost liquid, semiformed) Skin: positive: Warm, Dry, Pallor Extremities: positive: Full ROM, No pedal edema Neurologic/Psychiatric: positive: Disoriented to time, Facial droop, Slurred/abnml speech. negative: CN's nml (2-12), Motor nml - Lab Results Fish Bones: 04/23/22 05:14 04/24/22 12:32 Other Labs: Lab Results x24hrs 04/24/22 04/23/22 Range/Units 12:32 16:30 Sodium 136 (135-145) mmol/L Potassium 4.1 (3.5-5.0) mmol/L Chloride 110 (101-111) mmol/L Carbon Dioxide 15 L (21-32) mmol/L Anion Gap 11.0 (6-13) BUN 19 (6-20) mg/dL Creatinine 0.5 (0.4-1.0) mg/dL Estimated GFR (MDRD) 116 (>89) Glucose 104 H (70-100) mg/dL Calcium 8.1 L (8.5-10.3) mg/dL Stl C. diff Tox B Gene NEGATIVE (NEGATIVE) Assessment/Plan - Problem List (1) Cerebrovascular accident (CVA) Impression: Patient presented as significant left sided deficits. This included left facial droop, left upper and lower extremity weakness. Speech was also garbled. those have improved in the last 48 hours w speech and limbs are more mobile but still very weak. MRI shows small acute infarcts within the right green radiata, right posterolateral frontal lobe cortex, and right insula. Volume loss and small vessel ischemic changes seen. Echocardiogram was a technically difficult study with suboptimal parasternal views. Overall systolic function had an ejection f raction of 75%. Calculated left ventricular ejection fraction 71%. Right ventricle was normal. Mild increase in left atrial volume index at 37 mL/m. No valvular heart disease seen. Physical therapy, Occupational Therapy, and speech evaluations Have been done. They have been seeing her daily. Speech has felt she is progressed from eating ice to eating moist pure food. That was started last night after there last evaluation. She is having occasional coughing with thin liquids. One of her daughters, Opal, is a speech therapist herself. She has been closely following the situation. We had discussed the possibility of a PEG tube for her to go to inpatient rehab. Now that the patient is swallowing enough to do adequate nutritional intake, no PEG tube prior to inpatient rehab. She has gradually improved strength on the affected left side. She is now actually moving her arm up against gravity and her leg as well. Social work to help facilitate the process. Changed to p.o. baby aspirin and a statin. Continue to allow permissive hypertension. Patient's lisinopril has been held. Blood pressure is 129 and as high as 153 systolic in the last day. By 72 hours, which would be today, we should be able to resume her lisinopril. Plan is for her to be discharged tomorrow if inpatient facility can be found. (2) Atrial fibrillation resolved. Assessment/Plan: Was new onset. Was not in rapid ventricular rhythm. On metoprolol 2.5 mg IV every 8 hours. Anticoagulant not initiated yet, given recent stroke and risk of possible hemorrhagic conversion Metoprolol will be changed to p.o. status today. (3) COPD (chronic obstructive pulmonary disease) without exacerbation Assessment/Plan: DuoNeb every 4 hours as needed (4) HTN (hypertension) Assessment/Plan: Lisinopril currently held.On metoprolol for rate control of atrial fibrillation. Allowing permissive hypertension for CVA. Her blood pressures been in the 120's and 130 systolic. (5) History of ulcerative colitis Assessment/Plan: Intermittently on prednisone and azathioprine for flareups.She has had 5 bowel movements from midnight to this morning. She is usually on ASAcol tablet. We will see if we can resume that. (6) Hypothyroidism Assessment/Plan: On Synthroid 200 mcg IV on Mondays and since she couldn't take p.o. I have changed her back to 125 mcg daily dose that is p.o. That will start tomorrow. (7) Leukocytosis Assessment/Plan: Resolved. WBC 8. This was likely reactive. Qualifiers: Qualified Code(s): I63.9 - Cerebral infarction, unspecified
[2022-04-24] MEDS: MESALAMINE 800 MG PO SCH ×2 (14:26→21:12)
[2022-04-24] MEDS: ATORVASTATIN 40 MG TABLET PO SCH (21:11)
[2022-04-24] MEDS: LATANOPROST 0.005% OPHTH DROPS EACHEYE SCH (21:11)
[2022-04-24] MEDS: TIMOLOL 0.5% OPHTH DROPS EACHEYE SCH (21:12)
[2022-04-24] MEDS: IPRATROPIUM 0.2 MG/ML NEB INH SCH (21:16)
[2022-04-25] MEDS: NS W/20 MEQ KCL 1,000 ML IV SCH (03:15)
[2022-04-25] MEDS: SODIUM CHLORIDE FLUSH 0.9% 10 ML SYRINGE IVP SCH ×3 (05:54→17:13)
[2022-04-25] MEDS: MESALAMINE 800 MG PO SCH ×4 (05:54→21:08)
[2022-04-25] MEDS: IPRATROPIUM 0.2 MG/ML NEB INH SCH ×5 (05:59→21:30)
[2022-04-25] MEDS: LEVOTHYROXINE 125 MCG TABLET PO SCH (06:08)
[2022-04-25] MEDS ORDERED: LEVOTHYROXINE 100 MCG VIAL IVP SCH (07:00)
[2022-04-25] MEDS ORDERED: METOPROLOL SUCCINATE 25 MG TABLET PO SCH (09:00)
[2022-04-25] MEDS: ASPIRIN EC 81 MG TABLET PO SCH (09:51)
[2022-04-25] MEDS: AZATHIOPRINE 50 MG PO SCH (09:51)
[2022-04-25] MEDS: METOPROLOL TARTRATE 25 MG TABLET PO SCH ×2 (09:51→17:13)
[2022-04-25] MEDS: TIMOLOL 0.5% OPHTH DROPS EACHEYE SCH ×2 (09:52→21:07)
--- NOTE | 2022-04-25 11:54 | PROVIDER PROGRESS NOTE ---
Subjective - Prog Note Date Prog Note Date: 04/25/22 Prog Note Time: 11:49 Current Medications - Current Medications Current Medications: Active Medications Albuterol/Ipratropium (Ipratropium/Albuterol 3 Ml Neb) 3 ml INH Q4HR PRN PRN Reason: Wheezing Aspirin (Aspirin Ec 81 Mg Tablet) 81 mg PO DAILY [facility] Last Admin: 04/25/22 09:51 Dose: 81 mg Atorvastatin Calcium (Atorvastatin 40 Mg Tablet) 40 mg PO QPM [facility] Last Admin: 04/24/22 21:11 Dose: 40 mg Potassium Chloride/Sodium Chloride (Normal Saline 0.9% W/20 Meq Kcl) 1,000 mls @ 100 mls/hr IV .Q10H [facility] Last Infusion: 04/25/22 06:10 Dose: 100 mls/hr Acetaminophen (Acetaminophen) 1,000 mg in 100 mls @ 400 mls/hr IV Q6HR PRN PRN Reason: Pain or Fever > 38C (100.4F) Ipratropium [place] (Ipratropium 0.2 Mg/Ml Neb) 0.5 mg INH QID [facility] Latanoprost (Latanoprost 0.005% Ophth Drops) 1 drops EACHEYE QPM [facility] Last Admin: 04/24/22 21:11 Dose: 1 drops Levothyroxine Sodium (Levothyroxine 125 Mcg Tablet) 125 mcg PO QDAC [facility] Last Admin: 04/25/22 06:08 Dose: 125 mcg Metoprolol Tartrate (Metoprolol Tartrate 25 Mg Tablet) 12.5 mg PO BIDWM [facility] Last Admin: 04/25/22 09:51 Dose: 12.5 mg Mineral Oil (Min Oil/Dimethicon/Coconut Oil 92 Gm Tube) 1 applic TOP PRN PRN PRN Reason: Skin Care Last Admin: 04/24/22 04:54 Dose: 1 applic Multi-Ingredient Ointment (Zinc Oxide 20% Oint 30 Gm Tube) 1 applic TOP PRN PRN PRN Reason: Skin Care Last Admin: 04/23/22 08:21 Dose: 1 applic Ondansetron HCl (Ondansetron 4 Mg/2 Ml Vial) 4 mg IVP Q6HR PRN PRN Reason: Nausea / Vomiting Azathioprine 50mg (Tab) 100 each PO DAILY [facility] Last Admin: 04/25/22 09:51 Dose: Not Given Mesalamine 800mg Tab 1,600 each PO TID [facility] Last Admin: 04/25/22 05:54 Dose: Not Given Sodium Chloride (Sodium Chloride Flush 0.9% 10 Ml Syringe) 10 ml IVP PRN PRN PRN Reason: NEEDED PER PROVIDER ORDERS Last Admin: 04/24/22 06:18 Dose: 10 ml Sodium Chloride (Sodium Chloride Flush 0.9% 10 Ml Syringe) 10 ml IVP 0100,0900,1700 [facility] Last Admin: 04/25/22 09:53 Dose: Not Given Timolol Maleate (Timolol 0.5% Ophth Drops) 1 drops EACHEYE BID [facility] Last Admin: 04/25/22 09:52 Dose: 1 drops Levothyroxine Sodium [Synthroid] 125 mcg PO QDAC 02/08/13 Lisinopril 20 mg PO DAILY 02/08/13 Multivitamin [Multivitamins] 1 each PO DAILY 02/08/13 Latanoprost 0.005% Ophth Drops [Xalatan Ophth Drops] 1 drops EACHEYE QPM 04/22/22 Mesalamine [Asacol Hd] 1,600 mg PO TID 04/22/22 Timolol 0.5% Ophth Drops [Timoptic 0.5% Ophth Drops] 1 drops EACHEYE BID 04/22/22 Tiotropium [place] [Spiriva Handihaler] 18 mcg INH DAILY 04/22/22 azaTHIOprine [Azathioprine] 100 mg PO DAILY 04/22/22 Objective - Vital Signs/Intake & Output Reviewed Vital Signs: Yes Vital Signs: Vital Signs x48h Temp Pulse Pulse Resp BP BP Pulse Ox 04/25/22 09:51 142/79 H 04/25/22 08:55 78 24 04/25/22 07:45 36.5 C 88 20 142/59 H 91 L 04/25/22 05:21 36.5 C 79 20 145/58 H 94 Intake & Output: Intake & Output 04/22/22 04/23/22 04/24/22 04/25/22 23:59 23:59 23:59 23:59 Intake Total 918 2323.667 2046.667 1304.667 Output Total 50 550 150 225 Balance 868 2170.075 6299.667 1079.667 - Objective General Appearance: positive: No acute distress, Alert, Other (sitting up with PT/OT, answering questions and is appropriate) Eyes Bilateral: positive: PERRL ENT: positive: No signs of dehydration Neck: positive: No JVD. negative: Stiff neck Respiratory: positive: No respiratory distress. negative: Wheezes, Rales, Rhonchi Cardiovascular: positive: Regular rate & rhythm, Systolic murmur. negative: Gallop/S4, Friction rub Abdomen: positive: Non-tender, No organomegaly, Nml bowel sounds, No distention Skin: positive: Warm, Dry Neurologic/Psychiatric: positive: Oriented x3, Facial droop, Slurred/abnml speech. negative: CN's nml (2-12), Motor nml (left body hemiplegia that has improved from admit. she was barely moving L arm and L leg not at all then. T arun, able to slightly lift L arm up and L leg is moving back and forth but not against gravity. Able to stand and pivot w 2 CGA.) - Lab Results Fish Bones: 04/23/22 05:14 04/24/22 12:32 Other Labs: Lab Results x24hrs 04/24/22 Range/Units 12:32 Sodium 136 (135-145) mmol/L Potassium 4.1 (3.5-5.0) mmol/L Chloride 110 (101-111) mmol/L Carbon Dioxide 15 L (21-32) mmol/L Anion Gap 11.0 (6-13) BUN 19 (6-20) mg/dL Creatinine 0.5 (0.4-1.0) mg/dL Estimated GFR (MDRD) 116 (>89) Glucose 104 H (70-100) mg/dL Calcium 8.1 L (8.5-10.3) mg/dL Assessment/Plan - Problem List (1) Cerebrovascular accident (CVA) Impression: Patient presented as significant left sided deficits. This included left facial droop, left upper and lower extremity weakness. Speech was also garbled. those have improved since the second day of stay. MRI shows small acute infarcts within the right green radiata, right posterolateral frontal lobe cortex, and right insula. Volume loss and small vessel ischemic changes seen. Echocardiogram was a technically difficult study with suboptimal parasternal views. Overall systolic function had an ejection fraction of 75%. Calculated left ventricular ejection fraction 71%. Right ventricle was normal. Mild increase in left atrial volume index at 37 mL/m. No valvular heart disease seen. Physical therapy, Occupational Therapy, and speech evaluations Have been done. They have been seeing her daily. Speech has felt she is progressed from eating ice to eating moist pure food. She is having occasional coughing with thin liquids. One of her daughters, Opal, is a speech therapist herself. She has been closely following the situation. We had discussed the possibility of a PEG tube for her to go to inpatient rehab. Now that the patient is swallowing enou gh to do adequate nutritional intake, no PEG tube prior to inpatient rehab. She has gradually improved strength on the affected left side. She is now actually moving her arm up against gravity and her leg as well. Social work to help facilitate the process of transfer to inpatient and is following up on that. We have made the referrals a day ago and those facilities are reviewing her case. Changed to p.o. baby aspirin and a statin. Continue to allow permissive hypertension. Patient's lisinopril has been held. Blood pressure was 129 and as high as 153 systolic and since yesterday she is consistently in the 140s. Plan is for her to be discharged tomorrow if inpatient facility can be found. Resume lisinpril today. (2) Atrial fibrillation resolved. Assessment/Plan: Was new onset. Was not in rapid ventricular rhythm. was On metoprolol 2.5 mg IV every 8 hours. Anticoagulant not initiated yet, given recent stroke and risk of possible hemorrhagic conversion Metoprolol was changed to p.o. 04/24 (3) COPD (chronic obstructive pulmonary disease) without exacerbation Assessment/Plan: DuoNeb every 4 hours as needed (4) HTN (hypertension) Assessment/Plan: Lisinopril currently held.On metoprolol for rate control of atrial fibrillation. Allowing permissive hypertension for CVA. Her blood pressures had been in the 120's and 130 systolic. Now 140s and to resume Lisinopril. (5) History of ulcerative colitis Assessment/Plan: Intermittently on prednisone and azathioprine for flareups.She has had 5 bowel movements from midnight to this morning. She is usually on ASAcol tablet. We will see if we can resume that. Pharmacy can't so we are going to go to sulfasalazine 1 gram tid and holding zathiprine. Will sart budesonide 9 mg po daily. (6) Hypothyroidism Assessment/Plan: On Synthroid 200 mcg IV on Mondays and since she couldn't take p.o. I have changed her back to 125 mcg daily dose that is p.o. That will start today. (7) Leukocytosis Assessment/Plan: Resolved. WBC 8. This was likely reactive. Qualifiers: Qualified Code(s): I63.9 - Cerebral infarction, unspecified
[2022-04-25 13:30] LABS: BASOPHILS % (AUTO) 0.4 %; EOSINOPHILS % (AUTO) 0.8 %; HCT - HEMATOCRIT 31.7 % (37.0-47.0); HGB - HEMOGLOBIN 10.3 g/dL (12.0-16.0); LYMPHOCYTES # (AUTO) 1.3 10^3/uL (1.5-3.5); LYMPHOCYTES % (AUTO) 25.1 %; MEAN CORPUSCULAR HEMOGLOBIN 30.8 pg (27.0-31.0); MEAN CORPUSCULAR HGB CONC 32.5 g/dL (32.0-36.0); MEAN CORPUSCULAR VOLUME 94.9 fL (81.0-99.0); MEAN PLATELET VOLUME 8.2 fL (7.9-10.8); MONOCYTES # (AUTO) 0.3 10^3/uL (0.0-1.0); MONOCYTES % (AUTO) 6.2 %; NEUTROPHILS # (AUTO) 3.4 10^3/uL (1.5-6.6); NEUTROPHILS % (AUTO) 66.5 %; PLT - PLATELET COUNT 290 10^3/uL (130-450); RED BLOOD COUNT 3.34 10^6/uL (4.20-5.40); RED CELL DISTRIBUTION WIDTH 14.6 % (12.0-15.0); WHITE BLOOD COUNT 5.1 x10^3/uL (4.8-10.8)
[2022-04-25 13:42] LABS: CALCIUM 8.2 mg/dL (8.5-10.3); CREATININE 0.5 mg/dL (0.4-1.0); POTASSIUM 4.4 mmol/L (3.5-5.0)
[2022-04-25] MEDS: lisinopriL 20 MG TABLET PO SCH (14:02)
[2022-04-25] MEDS: BUDESONIDE 3 MG CAPSULE PO SCH (14:02)
[2022-04-25] MEDS: sulfaSALAzine 500 MG TABLET PO SCH ×2 (14:02→21:07)
[2022-04-25] MEDS: LATANOPROST 0.005% OPHTH DROPS EACHEYE SCH (21:07)
[2022-04-25] MEDS: ATORVASTATIN 40 MG TABLET PO SCH (21:07)
[2022-04-26] MEDS: SODIUM CHLORIDE FLUSH 0.9% 10 ML SYRINGE IVP SCH ×3 (01:00→17:03)
[2022-04-26] MEDS: MIN OIL/DIMETHICON/COCONUT OIL 92 GM TUBE TOP PRN ×2 (01:00→08:31)
[2022-04-26] MEDS: sulfaSALAzine 500 MG TABLET PO SCH ×3 (06:07→21:07)
[2022-04-26] MEDS: LEVOTHYROXINE 125 MCG TABLET PO SCH (06:08)
[2022-04-26] MEDS: MESALAMINE 800 MG PO SCH ×3 (08:08→21:09)
[2022-04-26] MEDS: ASPIRIN EC 81 MG TABLET PO SCH (08:30)
[2022-04-26] MEDS: METOPROLOL TARTRATE 25 MG TABLET PO SCH ×2 (08:30→17:02)
[2022-04-26] MEDS: BUDESONIDE 3 MG CAPSULE PO SCH (08:30)
[2022-04-26] MEDS: lisinopriL 20 MG TABLET PO SCH (08:30)
[2022-04-26] MEDS: AZATHIOPRINE 50 MG PO SCH (08:31)
[2022-04-26] MEDS: TIMOLOL 0.5% OPHTH DROPS EACHEYE SCH ×2 (08:32→21:08)
[2022-04-26] MEDS: ZINC OXIDE 20% OINT 30 GM TUBE TOP PRN (08:32)
[2022-04-26] MEDS: IPRATROPIUM 0.2 MG/ML NEB INH SCH ×4 (09:09→20:04)
--- NOTE | 2022-04-26 10:19 | PROVIDER PROGRESS NOTE ---
Subjective - Prog Note Date Prog Note Date: 04/26/22 Prog Note Time: 10:17 - Subjective Subjective: She continues to steadily progress and improve. Improved speech, improving strength on the left side. However the problem is food. Although she was edy red for pured diet, she is not eating very much or drinking very much. On the basis of that, inpatient rehab is declined to accept her in transfer. Current Medications - Current Medications Current Medications: Active Medications Albuterol/Ipratropium (Ipratropium/Albuterol 3 Ml Neb) 3 ml INH Q4HR PRN PRN Reason: Wheezing Aspirin (Aspirin Ec 81 Mg Tablet) 81 mg PO DAILY [facility] Last Admin: 04/26/22 08:30 Dose: 81 mg Atorvastatin Calcium (Atorvastatin 40 Mg Tablet) 40 mg PO QPM [facility] Last Admin: 04/25/22 21:07 Dose: 40 mg Budesonide (Budesonide 3 Mg Capsule) 9 mg PO DAILY [facility] Last Admin: 04/26/22 08:30 Dose: 9 mg Acetaminophen (Acetaminophen) 1,000 mg in 100 mls @ 400 mls/hr IV Q6HR PRN PRN Reason: Pain or Fever > 38C (100.4F) Ipratropium [place] (Ipratropium 0.2 Mg/Ml Neb) 0.5 mg INH RTQID [facility] Latanoprost (Latanoprost 0.005% Ophth Drops) 1 drops EACHEYE QPM [facility] Last Admin: 04/25/22 21:07 Dose: 1 drops Levothyroxine Sodium (Levothyroxine 125 Mcg Tablet) 125 mcg PO QDAC [facility] Last Admin: 04/26/22 06:08 Dose: 125 mcg Lisinopril (Lisinopril 20 Mg Tablet) 20 mg PO DAILY [facility] Last Admin: 04/26/22 08:30 Dose: 20 mg Metoprolol Tartrate (Metoprolol Tartrate 25 Mg Tablet) 12.5 mg PO BIDWM [facility] Last Admin: 04/26/22 08:30 Dose: 12.5 mg Mineral Oil (Min Oil/Dimethicon/Coconut Oil 92 Gm Tube) 1 applic TOP PRN PRN PRN Reason: Skin Care Last Admin: 04/26/22 08:31 Dose: 1 applic Multi-Ingredient Ointment (Zinc Oxide 20% Oint 30 Gm Tube) 1 applic TOP PRN PRN PRN Reason: Skin Care Last Admin: 04/26/22 08:32 Dose: 1 applic Ondansetron HCl (Ondansetron 4 Mg/2 Ml Vial) 4 mg IVP Q6HR PRN PRN Reason: Nausea / Vomiting Azathioprine 50mg (Tab) 100 each PO DAILY [facility] Last Admin: 04/26/22 08:31 Dose: Not Given Mesalamine 800mg Tab 1,600 each PO TID [facility] Last Admin: 04/26/22 08:08 Dose: Not Given Sodium Chloride (Sodium Chloride Flush 0.9% 10 Ml Syringe) 10 ml IVP PRN PRN PRN Reason: NEEDED PER PROVIDER ORDERS Last Admin: 04/24/22 06:18 Dose: 10 ml Sodium Chloride (Sodium Chloride Flush 0.9% 10 Ml Syringe) 10 ml IVP 0100,0900,1700 [facility] Last Admin: 04/26/22 08:31 Dose: 10 ml Sulfasalazine (Sulfasalazine 500 Mg Tablet) 1,000 mg PO TID [facility] Last Admin: 04/26/22 06:07 Dose: 1,000 mg Timolol Maleate (Timolol 0.5% Ophth Drops) 1 drops EACHEYE BID [facility] Last Admin: 04/26/22 08:32 Dose: 1 drops Levothyroxine Sodium [Synthroid] 125 mcg PO QDAC 02/08/13 Lisinopril 20 mg PO DAILY 02/08/13 Multivitamin [Multivitamins] 1 each PO DAILY 02/08/13 Latanoprost 0.005% Ophth Drops [Xalatan Ophth Drops] 1 drops EACHEYE QPM Mesalamine [Asacol Hd] 1,600 mg PO TID 04/22/22 Timolol 0.5% Ophth Drops [Timoptic 0.5% Ophth Drops] 1 drops EACHEYE BID 04/22/22 Tiotropium [place] [Spiriva Handihaler] 18 mcg INH DAILY 04/22/22 azaTHIOprine [Azathioprine] 100 mg PO DAILY 04/22/22 Objective - Vital Signs/Intake & Output Reviewed Vital Signs: Yes Vital Signs: Vital Signs x48h Temp Pulse Pulse Resp BP Pulse Ox 04/26/22 08:51 78 21 04/26/22 08:05 36.3 C L 88 16 114/56 L 100 04/26/22 05:00 36.5 C 80 16 125/54 L 99 Intake & Output: Intake & Output 04/23/22 04/24/22 04/25/22 04/26/22 23:59 23:59 23:59 23:59 Intake Total 2323.667 2046.667 2638.000 160 Output Total 550 150 450 100 Balance 8806.923 6299.667 2188.000 60 - Objective General Appearance: positive: No acute distress, Alert, Other (Frail elderly female, sitting up in bed, able to use her right hand for purposeful directed movements. Speech is short and succint) Eyes Bilateral: positive: PERRL, EOMI ENT: positive: No signs of dehydration Neck: positive: No JVD. negative: Stiff neck Respiratory: positive: No respiratory distress, Rhonchi (upper airway, from phlegm?). negative: Wheezes, Rales Cardiovascular: positive: Regular rate & rhythm. negative: Gallop/S4, Friction rub Abdomen: positive: Non-tender, No organomegaly, Nml bowel sounds, No distention Skin: positive: Warm, Dry Extremities: positive: No pedal edema Neurologic/Psychiatric: positive: Disoriented to time, Facial droop, Slurred/abnml speech. negative: CN's nml (2-12), Motor nml (Able to slightly lift up left arm, able to move left leg back and forth on bed but not able to lift it. Right arm and leg are being used. Able to stand and pivot with contact-guard assist x2) - Lab Results Fish Bones: 04/25/22 13:25 04/25/22 13:25 Other Labs: Lab Results x24hrs 04/25/22 04/25/22 Range/Units 13:25 13:25 WBC 5.1 (4.8-10.8) x10^3/uL RBC 3.34 L (4.20-5.40) 10^6/uL Hgb 10.3 L (12.0-16.0) g/dL Hct 31.7 L (37.0-47.0) % MCV 94.9 (81.0-99.0) fL MCH 30.8 (27.0-31.0) pg MCHC 32.5 (32.0-36.0) g/dL RDW 14.6 (12.0-15.0) % Plt Count 290 (130-450) 10^3/uL MPV 8.2 (7.9-10.8) fL Neut # (Auto) 3.4 (1.5-6.6) 10^3/uL Lymph # (Auto) 1.3 L (1.5-3.5) 10^3/uL Bennett # (Auto) 0.3 (0.0-1.0) 10^3/uL Eos # (Auto) 0.0 (0.0-0.7) 10^3/uL Baso # (Auto) 0.0 (0.0-0.1) 10^3/uL Absolute Nucleated RBC 0.00 x10^3/uL Nucleated RBC % 0.0 /100WBC Sodium 138 (135-145) mmol/L Potassium 4.4 (3.5-5.0) mmol/L Chloride 109 (101-111) mmol/L Carbon Dioxide 21 (21-32) mmol/L Anion Gap 8.0 (6-13) BUN 12 (6-20) mg/dL Creatinine 0.5 (0.4-1.0) mg/dL Estimated GFR (MDRD) 116 (>89) Glucose 140 H (70-100) mg/dL Calcium 8.2 L (8.5-10.3) mg/dL Assessment/Plan - Problem List (1) Cerebrovascular accident (CVA) Impression: When she was admitted, she was admitted with garbled speech, left facial droop, left arm and leg weakness. Dysphagia. All of these have improved steadily to the point that she was a good candidate for inpatient rehab. She has been seen by physical therapy, Occupational Therapy and speech therapy. She has been steadily progressing and improving from admission. She was felt to be a very good candidate for inpatient rehab on the basis of her steady improvement. However we have had a setback and that she has not been able to take in enough caloric intake to satisfy an inpatient rehab program. Daughter, who is a speech therapist, did not want a PEG placed. Inpatient rehab will not take her without a PEG. As such, will be discussed with family to make sure they do not want a PEG. Continue to work with the family about an appropriate disposition. Most likely this will be a nursing home facility with rehab. But this is now Friday, this is before a holiday weekend, and she may be with us for a few more days of avoidable days. She is on a baby aspirin, a statin, and lisinopril was resumed April 25. (2) Atrial fibrillation resolved. Assessment/Plan: Was new onset. Was not in rapid ventricular rhythm. was On metoprolol 2.5 mg IV every 8 hours. Anticoagulant not initiated yet, given recent stroke and risk of possible hemorrhagic conversion Metoprolol was changed to p.o. 04/24 (3) COPD (chronic obstructive pulmonary disease) without exacerbation Assessment/Plan: DuoNeb every 4 hours as needed (4) HTN (hypertension) Assessment/Plan: Lisinopril was held.On metoprolol for rate control of atrial fibrillation. Allowing permissive hypertension for CVA. Her blood pressures had been in the 120's and 130 systolic. She was at 140s and we resumed Lisinopril 04/25 (5) History of ulcerative colitis Assessment/Plan: Intermittently on prednisone and azathioprine for flareups.She has had 5 bowel movements from midnight to this morning. She is usually on ASAcol tablet. We will see if we can resume that. Pharmacy can't so we started sulfasalazine 1 gram tid and holding zathiprine on 04/25. Also started budesonide 9 mg po daily. (6) Hypothyroidism Assessment/Plan: was on Synthroid 200 mcg IV on Mondays and since she couldn't take p.o. I have changed her back to 125 mcg daily dose that is p.o. That started 04/25 (7) Leukocytosis Assessment/Plan: Resolved. WBC 8. This was likely reactive. Qualifiers: Qualified Code(s): I63.9 - Cerebral infarction, unspecified
[2022-04-26] MEDS: LATANOPROST 0.005% OPHTH DROPS EACHEYE SCH (21:08)
[2022-04-26] MEDS: ATORVASTATIN 40 MG TABLET PO SCH (21:08)
[2022-04-27] MEDS: ZINC OXIDE 20% OINT 30 GM TUBE TOP PRN ×2 (00:05→08:11)
[2022-04-27] MEDS: SODIUM CHLORIDE FLUSH 0.9% 10 ML SYRINGE IVP SCH ×3 (00:05→16:49)
[2022-04-27] MEDS: MESALAMINE 800 MG PO SCH ×3 (05:40→21:32)
[2022-04-27] MEDS: LEVOTHYROXINE 125 MCG TABLET PO SCH (05:40)
[2022-04-27] MEDS: sulfaSALAzine 500 MG TABLET PO SCH ×2 (05:40→13:12)
[2022-04-27] MEDS: IPRATROPIUM 0.2 MG/ML NEB INH SCH ×4 (07:26→20:28)
[2022-04-27] MEDS: IPRATROPIUM/ALBUTEROL 3 ML NEB INH PRN ×5 (07:26→20:27)
[2022-04-27] MEDS: BUDESONIDE 3 MG CAPSULE PO SCH (08:11)
[2022-04-27] MEDS: lisinopriL 20 MG TABLET PO SCH (08:12)
[2022-04-27] MEDS: METOPROLOL TARTRATE 25 MG TABLET PO SCH ×2 (08:12→16:49)
[2022-04-27] MEDS: ASPIRIN EC 81 MG TABLET PO SCH (08:12)
[2022-04-27] MEDS: AZATHIOPRINE 50 MG PO SCH ×2 (08:12→21:32)
[2022-04-27] MEDS: TIMOLOL 0.5% OPHTH DROPS EACHEYE SCH ×2 (08:13→20:12)
--- NOTE | 2022-04-27 11:49 | PROVIDER PROGRESS NOTE ---
Subjective - Prog Note Date Prog Note Date: 04/27/22 Prog Note Time: 11:45 - Subjective Subjective: No new orders overnight. This patient is on all p.o. meds, no more IV meds. Tolerating her sulfasalazine. No events reported by telemedicine overnight Current Medications - Current Medications Current Medications: Active Medications Albuterol/Ipratropium (Ipratropium/Albuterol 3 Ml Neb) 3 ml INH Q4HR PRN PRN Reason: Wheezing Last Admin: 04/27/22 11:29 Dose: 3 ml Aspirin (Aspirin Ec 81 Mg Tablet) 81 mg PO DAILY [facility] Last Admin: 04/27/22 08:12 Dose: 81 mg Atorvastatin Calcium (Atorvastatin 40 Mg Tablet) 40 mg PO QPM [facility] Last Admin: 04/26/22 21:08 Dose: 40 mg Budesonide (Budesonide 3 Mg Capsule) 9 mg PO DAILY [facility] Last Admin: 04/27/22 08:11 Dose: 9 mg Acetaminophen (Acetaminophen) 1,000 mg in 100 mls @ 400 mls/hr IV Q6HR PRN PRN Reason: Pain or Fever > 38C (100.4F) Ipratropium [place] (Ipratropium 0.2 Mg/Ml Neb) 0.5 mg INH RTQID [facility] Last Admin: 04/27/22 11:29 Dose: Not Given Latanoprost (Latanoprost 0.005% Ophth Drops) 1 drops EACHEYE QPM [facility] Last Admin: 04/26/22 21:08 Dose: 1 drops Levothyroxine Sodium (Levothyroxine 125 Mcg Tablet) 125 mcg PO QDAC [facility] Last Admin: 04/27/22 05:40 Dose: 125 mcg Lisinopril (Lisinopril 20 Mg Tablet) 20 mg PO DAILY [facility] Last Admin: 04/27/22 08:12 Dose: 20 mg Metoprolol Tartrate (Metoprolol Tartrate 25 Mg Tablet) 12.5 mg PO BIDWM [facility] Last Admin: 04/27/22 08:12 Dose: 12.5 mg Mineral Oil (Min Oil/Dimethicon/Coconut Oil 92 Gm Tube) 1 applic TOP PRN PRN PRN Reason: Skin Care Last Admin: 04/26/22 08:31 Dose: 1 applic Multi-Ingredient Ointment (Zinc Oxide 20% Oint 30 Gm Tube) 1 applic TOP PRN PRN PRN Reason: Skin Care Last Admin: 04/27/22 08:11 Dose: 1 applic Ondansetron HCl (Ondansetron 4 Mg/2 Ml Vial) 4 mg IVP Q6HR PRN PRN Reason: Nausea / Vomiting Azathioprine 50mg (Tab) 100 each PO DAILY [facility] Last Admin: 04/27/22 08:12 Dose: Not Given Mesalamine 800mg Tab 1,600 each PO TID [facility] Last Admin: 04/27/22 05:40 Dose: Not Given Sodium Chloride (Sodium Chloride Flush 0.9% 10 Ml Syringe) 10 ml IVP PRN PRN PRN Reason: NEEDED PER PROVIDER ORDERS Last Admin: 04/24/22 06:18 Dose: 10 ml Sodium Chloride (Sodium Chloride Flush 0.9% 10 Ml Syringe) 10 ml IVP 0100,0900,1700 [facility] Last Admin: 04/27/22 08:13 Dose: 10 ml Sulfasalazine (Sulfasalazine 500 Mg Tablet) 1,000 mg PO TID [facility] Last Admin: 04/27/22 05:40 Dose: 1,000 mg Timolol Maleate (Timolol 0.5% Ophth Drops) 1 drops EACHEYE BID [facility] Last Admin: 04/27/22 08:13 Dose: 1 drops Levothyroxine Sodium [Synthroid] 125 mcg PO QDAC 02/08/13 Lisinopril 20 mg PO DAILY 02/08/13 Multivitamin [Multivitamins] 1 each PO DAILY 02/08/13 Latanoprost 0.005% Ophth Drops [Xalatan Ophth Drops] 1 drops EACHEYE QPM 04/22/22 Mesalamine [Asacol Hd] 1,600 mg PO TID 04/22/22 Timolol 0.5% Ophth Drops [Timoptic 0.5% Ophth Drops] 1 drops EACHEYE BID 04/22/22 Tiotropium [place] [Spiriva Handihaler] 18 mcg INH DAILY 04/22/22 azaTHIOprine [Azathioprine] 100 mg PO DAILY 04/22/22 Objective - Vital Signs/Intake & Output Reviewed Vital Signs: Yes Vital Signs: Vital Signs x48h Temp Pulse Pulse Resp BP BP Pulse Ox 04/27/22 11:32 36.5 C 81 18 101/53 L 99 04/27/22 11:31 80 18 09/03/22 08:12 115/56 L 04/27/22 07:27 78 18 04/27/22 07:20 36.6 C 76 16 115/56 L 98 04/27/22 05:00 36.8 C 88 18 121/63 96 Intake & Output: Intake & Output 04/24/22 04/25/22 04/26/22 04/27/22 23:59 23:59 23:59 23:59 Intake Total 2046.667 2638.000 455 356 Output Total 150 450 450 Balance 9631.953 8837.000 5 356 - Objective General Appearance: positive: No acute distress, Alert Eyes Bilateral: positive: PERRL, EOMI ENT: positive: No signs of dehydration Neck: positive: No JVD. negative: Stiff neck Respiratory: positive: No respiratory distress. negative: Wheezes, Rales, Rhonchi Cardiovascular: positive: Irregularly irregular. negative: Gallop/S4, Friction rub Abdomen: positive: Non-tender, No organomegaly, Nml bowel sounds, No distention Skin: positive: Warm, Dry Extremities: positive: No pedal edema. negative: Full ROM Neurologic/Psychiatric: positive: Oriented x3 (She answers yes no appropriately to my questions of where she is, why she is here, and what is going on), Facial droop, Slurred/abnml speech, Other (Left facial droop, left body weakness with leg worse than arm. Improved over the last few days.). negative: CN's nml (2- 12) (Left facial droop, dysarthria and dysphagia. Able to swallow. No NG no PEG), Motor nml - Lab Results Fish Bones: 04/25/22 13:25 04/25/22 13:25 Assessment/Plan - Problem List (1) Cerebrovascular accident (CVA) Impression: When she was admitted, she was admitted with garbled speech, left facial droop, left arm and leg weakness. Dysphagia. All of these have improved steadily to the point that she was a good candidate for inpatient rehab. She has been seen by physical therapy, Occupational Therapy and speech therapy. She has been steadily progressing and improving from admission. She was felt to be a very good candidate for inpatient rehab on the basis of her steady improvement. However we have had a setback and that she has not been able to take in enough caloric intake to satisfy an inpatient rehab program. Daughter, who is a speech therapist, did not want a PEG placed. Inpatient rehab will not take her without a PEG. After discussion, there will be no PEG. Nutrition services feels this patient has a bare minimum of caloric intake and just needs to be encouraged pretty much nonstop. As such the patient will be sent to a [facility] facility for rehab. Unfortunately it is a long weekend of Labor Day and no one will be taking her until April 30.Today's avoidable day 2 She is on a baby aspirin, a statin, and lisinopril was resumed April 25. (2) Atrial fibrillation resolved. Assessment/Plan: Was new onset. Was not in rapid ventricular rhythm. was On metoprolol 2.5 mg IV every 8 hours. Anticoagulant not initiated yet, given recent stroke and risk of possible hemorrhagic conversion. Will start Eliquis Or other anticoagulation after 2 weeks. After 2 weeks which will be approximately May 05. Metoprolol was changed to p.o. 04/24 (3) COPD (chronic obstructive pulmonary disease) without exacerbation Assessment/Plan: DuoNeb every 4 hours as needed (4) HTN (hypertension) Assessment/Plan: Lisinopril was held.On metoprolol for rate control of atrial fibrillation. We were allowing permissive hypertension for CVA. Her blood pressures had been in the 120's and 130 systolic. She was at 140s and we resumed Lisinopril 04/25 (5) History of ulcerative colitis Assessment/Plan: Intermittently on prednisone and azathioprine for flareups.She has had 5 bowel movements from midnight to this morning. She is usually on ASAcol tablet. We will see if we can resume that. Pharmacy can't so we started sulfasalazine 1 gram tid and holding zathiprine on 04/25. Also started budesonide 9 mg po daily. Bowel movement frequency has improved (6) Hypothyroidism Assessment/Plan: was on Synthroid 200 mcg IV on Mondays and since she couldn't take p.o. I have changed her back to 125 mcg daily dose that is p.o. That started 04/25 (7) Leukocytosis Assessment/Plan: Resolved. WBC 8. This was likely reactive. Qualifiers: Qualified Code(s): I63.9 - Cerebral infarction, unspecified
[2022-04-27] MEDS: methocarbamoL 500 MG TABLET PO PRN (20:06)
[2022-04-27] MEDS: ATORVASTATIN 40 MG TABLET PO SCH (20:07)
[2022-04-27] MEDS: LATANOPROST 0.005% OPHTH DROPS EACHEYE SCH (20:11)
[2022-04-28] MEDS: ZINC OXIDE 20% OINT 30 GM TUBE TOP PRN ×2 (01:16→10:56)
[2022-04-28] MEDS: SODIUM CHLORIDE FLUSH 0.9% 10 ML SYRINGE IVP SCH ×3 (01:18→16:59)
[2022-04-28] MEDS: LEVOTHYROXINE 125 MCG TABLET PO SCH (05:53)
[2022-04-28] MEDS: MESALAMINE 800 MG PO SCH (06:09)
[2022-04-28] MEDS: sulfaSALAzine 500 MG TABLET PO SCH ×3 (08:18→21:49)
[2022-04-28] MEDS: ASPIRIN EC 81 MG TABLET PO SCH (08:18)
[2022-04-28] MEDS: lisinopriL 20 MG TABLET PO SCH (08:18)
[2022-04-28] MEDS: METOPROLOL TARTRATE 25 MG TABLET PO SCH ×2 (08:19→16:58)
[2022-04-28] MEDS: TIMOLOL 0.5% OPHTH DROPS EACHEYE SCH ×2 (08:20→21:49)
[2022-04-28] MEDS: AZATHIOPRINE 50 MG PO SCH ×2 (08:20→21:50)
--- NOTE | 2022-04-28 09:49 | PROVIDER PROGRESS NOTE ---
Subjective - Prog Note Date Prog Note Date: 04/28/22 Prog Note Time: 09:47 - Subjective Subjective: She is sitting up in bed this morning. TV is on but she is not really paying attention to it. She denies any chest pain, pain anywhere. She tells me that she is hungry. Vital signs of been stable, telemetry has been without arrhythmia her entire stay here. She continues to have urinary retention almost on a daily basis requiring straight catheter for 3 shifts now. Current Medications - Current Medications Current Medications: Active Medications Acetaminophen (Acetaminophen 500 Mg Tablet) 500 mg PO Q4HR PRN PRN Reason: Pain or Fever > 38C (100.4F) Albuterol/Ipratropium (Ipratropium/Albuterol 3 Ml Neb) 3 ml INH Q4HR PRN PRN Reason: Wheezing Last Admin: 04/27/22 20:27 Dose: 3 ml Aspirin (Aspirin Ec 81 Mg Tablet) 81 mg PO DAILY [facility] Last Admin: 04/28/22 08:18 Dose: 81 mg Atorvastatin Calcium (Atorvastatin 40 Mg Tablet) 40 mg PO QPM [facility] Last Admin: 04/27/22 20:07 Dose: 40 mg Ipratropium [place] (Ipratropium 0.2 Mg/Ml Neb) 0.5 mg INH RTQID [facility] Last Admin: 04/27/22 20:28 Dose: Not Given Latanoprost (Latanoprost 0.005% Ophth Drops) 1 drops EACHEYE QPM [facility] Last Admin: 04/27/22 20:11 Dose: 1 drops Levothyroxine Sodium (Levothyroxine 125 Mcg Tablet) 125 mcg PO QDAC [facility] Last Admin: 04/28/22 05:53 Dose: 125 mcg Lisinopril (Lisinopril 20 Mg Tablet) 20 mg PO DAILY [facility] Last Admin: 04/28/22 08:18 Dose: 20 mg Methocarbamol (Methocarbamol 500 Mg Tablet) 500 mg PO Q6HR PRN PRN Reason: Spasms Last Admin: 04/27/22 20:06 Dose: 500 mg Metoprolol Tartrate (Metoprolol Tartrate 25 Mg Tablet) 12.5 mg PO BIDWM [facility] Last Admin: 04/28/22 08:19 Dose: 12.5 mg Mineral Oil (Min Oil/Dimethicon/Coconut Oil 92 Gm Tube) 1 applic TOP PRN PRN PRN Reason: Skin Care Last Admin: 04/26/22 08:31 Dose: 1 applic Multi-Ingredient Ointment (Zinc Oxide 20% Oint 30 Gm Tube) 1 applic TOP PRN PRN PRN Reason: Skin Care Last Admin: 04/28/22 01:16 Dose: 1 applic Ondansetron HCl (Ondansetron 4 Mg/2 Ml Vial) 4 mg IVP Q6HR PRN PRN Reason: Nausea / Vomiting Azathioprine 50mg (Tab) 1 each PO BID [facility] Last Admin: 04/28/22 08:20 Dose: 1 each Sodium Chloride (Sodium Chloride Flush 0.9% 10 Ml Syringe) 10 ml IVP PRN PRN PRN Reason: NEEDED PER PROVIDER ORDERS Last Admin: 04/24/22 06:18 Dose: 10 ml Sodium Chloride (Sodium Chloride Flush 0.9% 10 Ml Syringe) 10 ml IVP 0100,0900,1700 [facility] Last Admin: 04/28/22 08:21 Dose: 10 ml Sulfasalazine (Sulfasalazine 500 Mg Tablet) 1,000 mg PO TID [facility] Last Admin: 04/28/22 08:18 Dose: 1,000 mg Timolol Maleate (Timolol 0.5% Ophth Drops) 1 drops EACHEYE BID [facility] Last Admin: 04/28/22 08:20 Dose: 1 drops Levothyroxine Sodium [Synthroid] 125 mcg PO QDAC 02/08/13 Lisinopril 20 mg PO DAILY 02/08/13 Multivitamin [Multivitamins] 1 each PO DAILY 02/08/13 Latanoprost 0.005% Ophth Drops [Xalatan Ophth Drops] 1 drops EACHEYE QPM 04/22/22 Mesalamine [Asacol Hd] 1,600 mg PO TID 04/22/22 Timolol 0.5% Ophth Drops [Timoptic 0.5% Ophth Drops] 1 drops EACHEYE BID 04/22/22 Tiotropium [place] [Spiriva Handihaler] 18 mcg INH DAILY 04/22/22 azaTHIOprine [Azathioprine] 100 mg PO DAILY 04/22/22 Objective - Vital Signs/Intake & Output Reviewed Vital Signs: Yes Vital Signs: Vital Signs x48h Temp Pulse Resp BP BP Pulse Ox 04/28/22 08:19 127/65 04/28/22 07:25 36.2 C L 70 16 127/65 94 04/28/22 04:48 36.6 C 79 18 124/90 H 95 Intake & Output: Intake & Output 04/25/22 04/26/22 04/27/22 04/28/22 23:59 23:59 23:59 23:59 Intake Total 2638.000 455 596 530 Output Total 500 450 500 Balance 2138.000 5 96 530 - Objective General Appearance: positive: Alert, Other (Nonverbal, speech slightly slurred when she does speak. Today she is less chatty than usual and answers yes no) Eyes Bilateral: positive: PERRL, EOMI ENT: positive: No signs of dehydration Neck: positive: No JVD. negative: Stiff neck Respiratory: positive: No respiratory distress, Other (Slow, shallow, unlabored respiration with diminished breath sounds at bases). negative: Wheezes, Rales, Rhonchi Cardiovascular: positive: Regular rate & rhythm. negative: Gallop/S4, Friction rub Abdomen: positive: No organomegaly, Nml bowel sounds, No distention Skin: positive: Warm, Dry Extremities: positive: Full ROM (On passive range of motion. She is unable to spontaneously move her left side very well), No pedal edema Neurologic/Psychiatric: positive: Oriented x3, Other (Left hemiplegia with left leg affected more than left arm. Left facial droop. Aphasia, dysphagia, dysarthria. All of these have slowly improved since admission but she seems to have plateaued over the last 2 days. No PT today and will resume tomorrow). negative: CN's nml (2-12), Motor nml - Lab Results Fish Bones: 04/25/22 13:25 04/25/22 13:25 Assessment/Plan - Problem List (1) Cerebrovascular accident (CVA) Impression: When she was admitted, she was admitted with garbled speech, left facial droop, left arm and leg weakness. Dysphagia. All of these have improved steadily to the point that she was a good candidate for inpatient rehab. She has been seen by physical therapy, Occupational Therapy and speech therapy. She has been steadily progressing and improving from admission. She was felt to be a very good candidate for inpatient rehab on the basis of her steady improvement. However we have had a setback and that she has not been able to take in enough caloric intake to satisfy an inpatient rehab program. Daughter, who is a speech therapist, did not want a PEG placed. Inpatient rehab will not take her without a PEG. After discussion, there will be no PEG. Nutrition services feels this patient has a bare minimum of caloric intake and just needs to be encouraged pretty much nonstop. As such the patient will be sent to a custodial facility for rehab. Unfortunately it is a long weekend of Labor Day and no one will be taking her until April 30.Today's avoidable day 3. No changes in status for the last 2 days. She is on a baby aspirin, a statin, and lisinopril was resumed April 25. (2) Atrial fibrillation resolved. Assessment/Plan: Was new onset. Was not in rapid ventricular rhythm. was On metoprolol 2.5 mg IV every 8 hours. Anticoagulant not initiated yet, given recent stroke and risk of possible hemorrhagic conversion. Will start Eliquis Or other anticoagulation after 2 weeks. After 2 weeks which will be approximately May 05. Metoprolol was changed to p.o. 04/24 DC telemetry today (3) COPD (chronic obstructive pulmonary disease) without exacerbation Assessment/Plan: DuoNeb every 4 hours as needed (4) HTN (hypertension) Assessment/Plan: Lisinopril was held.On metoprolol for rate control of atrial fibrillation. We were allowing permissive hypertension for CVA. Her blood pressures had been in the 120's and 130 systolic. She was at 140s and we resumed Lisinopril 04/25 Blood pressure is 108 systolic at midnight. Since then she is 124 and up to 127 systolic. (5) History of ulcerative colitis Assessment/Plan: Intermittently on prednisone and azathioprine for flareups.She has had 5 bowel movements from midnight to this morning. She is usually on ASAcol tablet. We will see if we can resume that After substituting sulfasalazine 1 g p.o. 3 times daily, holding azathioprine, starting budesonide 9 mg daily. Bowel movement frequency did improve on that. We did resume her a sick call yesterday but Pharmacy said she is not able to take that. So we are going back to the sulfasalazine and budesonide. (6) Hypothyroidism Assessment/Plan: was on Synthroid 200 mcg IV on Mondays and since she couldn't take p.o. I have changed her back to 125 mcg daily dose that is p.o. That started 04/25 (7) Leukocytosis Assessment/Plan: Resolved. WBC 8. This was likely reactive. Qualifiers: Qualified Code(s): I63.9 - Cerebral infarction, unspecified
[2022-04-28] MEDS: IPRATROPIUM 0.2 MG/ML NEB INH SCH ×4 (11:28→20:14)
[2022-04-28] MEDS: IPRATROPIUM/ALBUTEROL 3 ML NEB INH PRN ×3 (11:28→20:13)
[2022-04-28] MEDS: ATORVASTATIN 40 MG TABLET PO SCH (21:48)
[2022-04-28] MEDS: LATANOPROST 0.005% OPHTH DROPS EACHEYE SCH (21:48)
[2022-04-28] MEDS: methocarbamoL 500 MG TABLET PO PRN (22:37)
[2022-04-28] MEDS: ACETAMINOPHEN 500 MG TABLET PO PRN (23:45)
[2022-04-29] MEDS: ZINC OXIDE 20% OINT 30 GM TUBE TOP PRN
[2022-04-29] MEDS: sulfaSALAzine 500 MG TABLET PO SCH ×3 (06:24→20:21)
[2022-04-29] MEDS: LEVOTHYROXINE 125 MCG TABLET PO SCH (06:24)
[2022-04-29] MEDS: SODIUM CHLORIDE FLUSH 0.9% 10 ML SYRINGE IVP SCH ×3 (06:24→17:22)
[2022-04-29] MEDS: IPRATROPIUM 0.2 MG/ML NEB INH SCH ×4 (07:50→19:25)
[2022-04-29 08:22] LABS: BASOPHILS % (AUTO) 0.3 %; EOSINOPHILS # (AUTO) 0.1 10^3/uL (0.0-0.7); HCT - HEMATOCRIT 31.3 % (37.0-47.0); HGB - HEMOGLOBIN 9.9 g/dL (12.0-16.0); LYMPHOCYTES # (AUTO) 2.6 10^3/uL (1.5-3.5); LYMPHOCYTES % (AUTO) 37.1 %; MEAN CORPUSCULAR HEMOGLOBIN 30.3 pg (27.0-31.0); MEAN CORPUSCULAR HGB CONC 31.6 g/dL (32.0-36.0); MEAN CORPUSCULAR VOLUME 95.7 fL (81.0-99.0); MEAN PLATELET VOLUME 8.7 fL (7.9-10.8); MONOCYTES # (AUTO) 0.4 10^3/uL (0.0-1.0); MONOCYTES % (AUTO) 5.3 %; NEUTROPHILS # (AUTO) 3.9 10^3/uL (1.5-6.6); NEUTROPHILS % (AUTO) 55.3 %; PLT - PLATELET COUNT 257 10^3/uL (130-450); RED BLOOD COUNT 3.27 10^6/uL (4.20-5.40); RED CELL DISTRIBUTION WIDTH 15.2 % (12.0-15.0)
[2022-04-29 08:31] LABS: CALCIUM 8.2 mg/dL (8.5-10.3); CREATININE 0.6 mg/dL (0.4-1.0); POTASSIUM 4.3 mmol/L (3.5-5.0)
[2022-04-29] MEDS: METOPROLOL TARTRATE 25 MG TABLET PO SCH ×2 (08:38→17:22)
[2022-04-29] MEDS: ASPIRIN EC 81 MG TABLET PO SCH (08:38)
[2022-04-29] MEDS: lisinopriL 20 MG TABLET PO SCH (08:38)
[2022-04-29] MEDS: methocarbamoL 500 MG TABLET PO PRN ×2 (08:38→19:57)
[2022-04-29] MEDS: AZATHIOPRINE 50 MG PO SCH ×2 (08:39→20:03)
[2022-04-29] MEDS: TIMOLOL 0.5% OPHTH DROPS EACHEYE SCH ×2 (08:40→20:03)
[2022-04-29] MEDS: MIN OIL/DIMETHICON/COCONUT OIL 92 GM TUBE TOP PRN (10:56)
--- NOTE | 2022-04-29 11:14 | PROVIDER PROGRESS NOTE ---
Subjective - Prog Note Date Prog Note Date: 04/29/22 Prog Note Time: 11:11 - Subjective Subjective: she's bored and smiles when she says that. "there's nothing to do." Current Medications - Current Medications Current Medications: Active Medications Acetaminophen (Acetaminophen 500 Mg Tablet) 500 mg PO Q4HR PRN PRN Reason: Pain or Fever > 38C (100.4F) Last Admin: 04/28/22 23:45 Dose: 500 mg Albuterol/Ipratropium (Ipratropium/Albuterol 3 Ml Neb) 3 ml INH Q4HR PRN PRN Reason: Wheezing Last Admin: 04/28/22 20:13 Dose: 3 ml Aspirin (Aspirin Ec 81 Mg Tablet) 81 mg PO DAILY [facility] Last Admin: 04/29/22 08:38 Dose: 81 mg Atorvastatin Calcium (Atorvastatin 40 Mg Tablet) 40 mg PO QPM [facility] Last Admin: 04/28/22 21:48 Dose: 40 mg COVID-19 Vaccine mRNA LNP-S (PFR) (PF) (Covid-19 Vacc, Mrna(finalsite)/Pf 30 Mcg/0.3 Ml Syringe) 30 mcg IM .ONCE ONE Stop: 04/29/22 14:01 Ipratropium [place] (Ipratropium 0.2 Mg/Ml Neb) 0.5 mg INH RTQID [facility] Last Admin: 04/29/22 11:00 Dose: 0.5 mg Latanoprost (Latanoprost 0.005% Ophth Drops) 1 drops EACHEYE QPM [facility] Last Admin: 04/28/22 21:48 Dose: 1 drops Levothyroxine Sodium (Levothyroxine 125 Mcg Tablet) 125 mcg PO QDAC [facility] Last Admin: 04/29/22 06:24 Dose: 125 mcg Lisinopril (Lisinopril 20 Mg Tablet) 20 mg PO DAILY [facility] Last Admin: 04/29/22 08:38 Dose: 20 mg Methocarbamol (Methocarbamol 500 Mg Tablet) 500 mg PO Q6HR PRN PRN Reason: Spasms Last Admin: 04/29/22 08:38 Dose: 500 mg Metoprolol Tartrate (Metoprolol Tartrate 25 Mg Tablet) 12.5 mg PO BIDWM [facility] Last Admin: 04/29/22 08:38 Dose: 12.5 mg Mineral Oil (Min Oil/Dimethicon/Coconut Oil 92 Gm Tube) 1 applic TOP PRN PRN PRN Reason: Skin Care Last Admin: 04/29/22 10:56 Dose: 1 applic Multi-Ingredient Ointment (Zinc Oxide 20% Oint 30 Gm Tube) 1 applic TOP PRN PRN PRN Reason: Skin Care Last Admin: 04/29/22 00:00 Dose: 1 applic Ondansetron HCl (Ondansetron 4 Mg/2 Ml Vial) 4 mg IVP Q6HR PRN PRN Reason: Nausea / Vomiting Azathioprine 50mg (Tab) 1 each PO BID [facility] Last Admin: 04/29/22 08:39 Dose: 1 each Sodium Chloride (Sodium Chloride Flush 0.9% 10 Ml Syringe) 10 ml IVP PRN PRN PRN Reason: NEEDED PER PROVIDER ORDERS Last Admin: 04/24/22 06:18 Dose: 10 ml Sodium Chloride (Sodium Chloride Flush 0.9% 10 Ml Syringe) 10 ml IVP 0100,0900,1700 [facility] Last Admin: 04/29/22 08:38 Dose: 10 ml Sulfasalazine (Sulfasalazine 500 Mg Tablet) 1,000 mg PO TID [facility] Last Admin: 04/29/22 06:24 Dose: 1,000 mg Timolol Maleate (Timolol 0.5% Ophth Drops) 1 drops EACHEYE BID [facility] Last Admin: 04/29/22 08:40 Dose: 1 drops Levothyroxine Sodium [Synthroid] 125 mcg PO QDAC 02/08/13 Lisinopril 20 mg PO DAILY 02/08/13 Multivitamin [Multivitamins] 1 each PO DAILY 02/08/13 Latanoprost 0.005% Ophth Drops [Xalatan Ophth Drops] 1 drops EACHEYE QPM 04/22/22 Mesalamine [Asacol Hd] 1,600 mg PO TID 04/22/22 Timolol 0.5% Ophth Drops [Timoptic 0.5% Ophth Drops] 1 drops EACHEYE BID 04/22/22 Tiotropium [place] [Spiriva Handihaler] 18 mcg INH DAILY 04/22/22 azaTHIOprine [Azathioprine] 100 mg PO DAILY 04/22/22 Objective - Vital Signs/Intake & Output Reviewed Vital Signs: Yes Vital Signs: Vital Signs x48h Temp Pulse Pulse Pulse Resp BP BP 09/05/22 11:00 59 L 20 04/29/22 08:38 123/61 04/29/22 08:30 71 16 04/29/22 08:00 36.4 C L 49 L 49 L 25 H 119/66 04/29/22 07:40 65 18 04/29/22 05:25 36.5 C 75 16 115/62 Pulse Ox 04/29/22 11:00 04/29/22 08:38 04/29/22 08:30 04/29/22 08:00 95 04/29/22 07:40 04/29/22 05:25 95 Intake & Output: Intake & Output 04/26/22 04/27/22 04/28/22 04/29/22 23:59 23:59 23:59 23:59 Intake Total 455 596 870 0 Output Total 450 500 940 175 Balance 5 96 70 175 - Objective General Appearance: positive: No acute distress, Alert Eyes Bilateral: positive: PERRL, EOMI Respiratory: positive: No respiratory distress. negative: Wheezes, Rales, Rhonchi Cardiovascular: positive: Regular rate & rhythm. negative: Gallop/S4, Friction rub Abdomen: positive: Non-tender, No organomegaly, Nml bowel sounds, No distention, Other (2 bm's in last 2 shifts) Skin: positive: Warm, Dry Extremities: positive: Full ROM (except for the left which can move but only with passive rom) Neurologic/Psychiatric: positive: Oriented x3, Facial droop, Slurred/abnml speech, Other (left hemiplegia with L leg>Larm). negative: CN's nml (2-12), Motor nml - Lab Results Fish Bones: 04/29/22 08:00 04/29/22 08:00 Other Labs: Lab Results x24hrs 04/29/22 04/29/22 Range/Units 08:00 08:00 WBC 7.0 (4.8-10.8) x10^3/uL RBC 3.27 L (4.20-5.40) 10^6/uL Hgb 9.9 L (12.0-16.0) g/dL Hct 31.3 L (37.0-47.0) % MCV 95.7 (81.0-99.0) fL MCH 30.3 (27.0-31.0) pg MCHC 31.6 L (32.0-36.0) g/dL RDW 15.2 H (12.0-15.0) % Plt Count 257 (130-450) 10^3/uL MPV 8.7 (7.9-10.8) fL Neut # (Auto) 3.9 (1.5-6.6) 10^3/uL Lymph # (Auto) 2.6 (1.5-3.5) 10^3/uL Alfalfa # (Auto) 0.4 (0.0-1.0) 10^3/uL Eos # (Auto) 0.1 (0.0-0.7) 10^3/uL Baso # (Auto) 0.0 (0.0-0.1) 10^3/uL Absolute Nucleated RBC 0.00 x10^3/uL Nucleated RBC % 0.0 /100WBC Sodium 134 L (135-145) mmol/L Potassium 4.3 (3.5-5.0) mmol/L Chloride 100 L (101-111) mmol/L Carbon Dioxide 27 (21-32) mmol/L Anion Gap 7.0 (6-13) BUN 22 H (6-20) mg/dL Creatinine 0.6 (0.4-1.0) mg/dL Estimated GFR (MDRD) 94 (>89) Glucose 100 (70-100) mg/dL Calcium 8.2 L (8.5-10.3) mg/dL Assessment/Plan - Problem List (1) Cerebrovascular accident (CVA) Impression: When she was admitted, she was admitted with garbled speech, left facial droop, left arm and leg weakness. Dysphagia. She has been seen by physical therapy, Occupational Therapy and speech therapy. She has been steadily progressing and improving from admission. She was felt to be a very good candidate for inpatient rehab on the basis of her steady improvement. However we have had a setback and that she has not been able to take in enough caloric intake to satisfy an inpatient rehab program. Daughter, who is a speech therapist, did not want a PEG placed. Inpatient rehab will not take her without a PEG. After discussion, there will be no PEG. Nutrition services feels this patient has a bare minimum of caloric intake and just needs to be encouraged pretty much nonstop. As such the patient will be sent to a detention facility for rehab. Unfortunately it is a long weekend of Labor Day and no one will be taking her until April 30.Today's avoidable day 4. No changes in status for the last 3 days. She is on a baby aspirin, a statin, and lisinopril was resumed April 25. SNF would like covid test and covid booster given. Those were ordered. Hopefully dc in am. (2) Atrial fibrillation resolved. Assessment/Plan: Was new onset. Was not in rapid ventricular rhythm. was On metoprolol 2.5 mg IV every 8 hours. Anticoagulant not initiated yet, given recent stroke and risk of possible hemorrhagic conversion. Will start Eliquis Or other anticoagulation after 2 weeks. After 2 weeks which will be approximately May 05. Metoprolol was changed to p.o. 04/24 DC telemetry 04/28 (3) COPD (chronic obstructive pulmonary disease) without exacerbation Assessment/Plan: DuoNeb every 4 hours as needed (4) HTN (hypertension) Assessment/Plan: Lisinopril was held.On metoprolol for rate control of atrial fibrillation. We were allowing permissive hypertension for CVA. Her blood pressures had been in the 120's and 130 systolic. She was at 140s and we resumed Lisinopril 04/25 Blood pressure is 108 systolic at midnight. Since then she is 124 and up to 127 systolic. (5) History of ulcerative colitis Assessment/Plan: Intermittently on prednisone and azathioprine for flareups.She has had 5 bowel movements from midnight to this morning. She is usually on ASAcol tablet. We will see if we can resume that After substituting sulfasalazine 1 g p.o. 3 times daily, holding azathioprine, starting budesonide 9 mg daily. Bowel movement frequency did improve on that. We did resume her a sick call yesterday but Pharmacy said she is not able to take that. So we are going back to the s ulfasalazine and budesonide. (6) Hypothyroidism Assessment/Plan: was on Synthroid 200 mcg IV on Mondays and since she couldn't take p.o. I have changed her back to 125 mcg daily dose that is p.o. That started 04/25 (7) Leukocytosis Assessment/Plan: Resolved. WBC 8. This was likely reactive. Qualifiers: Qualifiers: Qualified Code(s): I63.9 - Cerebral infarction, unspecified
[2022-04-29] MEDS: ACETAMINOPHEN 500 MG TABLET PO PRN (11:35)
[2022-04-29 12:29] LABS: CORONAVIRUS 229E-RESP PCR NOT DETECTED; CORONAVIRUS HKU1-RESP PCR NOT DETECTED; CORONAVIRUS NL63-RESP PCR NOT DETECTED; CORONAVIRUS OC43-RESP PCR NOT DETECTED; HUMAN METAPNEUMOVIRUS NOT DETECTED; RHINOVIRUS/ENTEROVIRUS NOT DETECTED; SARS-CoV-2 -RESP PCR PANEL NOT DETECTED
[2022-04-29 12:30] LABS: B. PARAPERTUSSIS- RESP PCR PAN NOT DETECTED; B. PERTUSSIS- RESP PCR PANEL NOT DETECTED; C. PNEUMONIAE- RESP PCR PANEL NOT DETECTED; INFLUENZA A- RESP PCR PANEL NOT DETECTED; INFLUENZA B - RESP PCR PANEL NOT DETECTED; M. PNEUMONIAE- RESP PCR PANEL NOT DETECTED; PARAINFLUENZA VIRUS 1 NOT DETECTED; PARAINFLUENZA VIRUS 2 NOT DETECTED; PARAINFLUENZA VIRUS 3 NOT DETECTED; PARAINFLUENZA VIRUS 4 NOT DETECTED; RSV- RESP PCR PANEL NOT DETECTED
[2022-04-29] MEDS ORDERED: COVID-19 VACC, MRNA(PFIZER)/PF 30 MCG/0.3 ML SYRINGE IM ONE (14:00)
[2022-04-29] MEDS: LATANOPROST 0.005% OPHTH DROPS EACHEYE SCH (20:03)
[2022-04-29] MEDS: ATORVASTATIN 40 MG TABLET PO SCH (20:04)
[2022-04-30] MEDS: ZINC OXIDE 20% OINT 30 GM TUBE TOP PRN (00:50)
[2022-04-30] MEDS: SODIUM CHLORIDE FLUSH 0.9% 10 ML SYRINGE IVP SCH ×2 (01:00→08:16)
[2022-04-30] MEDS: sulfaSALAzine 500 MG TABLET PO SCH (05:30)
[2022-04-30] MEDS: LEVOTHYROXINE 125 MCG TABLET PO SCH (05:31)
[2022-04-30] MEDS: IPRATROPIUM 0.2 MG/ML NEB INH SCH (07:20)
[2022-04-30] MEDS: METOPROLOL TARTRATE 25 MG TABLET PO SCH (08:15)
[2022-04-30] MEDS: ASPIRIN EC 81 MG TABLET PO SCH (08:15)
[2022-04-30] MEDS: lisinopriL 20 MG TABLET PO SCH (08:16)
[2022-04-30] MEDS: AZATHIOPRINE 50 MG PO SCH (08:17)
[2022-04-30] MEDS: TIMOLOL 0.5% OPHTH DROPS EACHEYE SCH (08:18)
[2022-04-30] MEDS: ACETAMINOPHEN 500 MG TABLET PO PRN (09:14)
[2022-04-30 11:00] VITALS: BP 108/43
--- NOTE | 2022-04-30 11:13 | Discharge Plan ---
Discharge Plan for SNF / [facility] - Discharge Plan And Transition Orders Problem Reviewed?: Yes Disposition: 03 SNF DC/Xfer Condition: Stable Allergies and Adverse Reactions: Allergies Allergy/AdvReac Type Severity Reaction Status Date / Time tetracycline [Tetracycline] AdvReac Nausea Verified 04/12/22 17:49 Health Concerns: She is an 87-year-old white female who lives with her daughter, has ulcerative colitis, stable COPD, hypertension who went to take a nap at 3:00 and woke up at 6 PM with left-sided stroke. She was found to be in new onset atrial fibrillation in the emergency room. MRI confirms 3 areas of small embolic strokes on the right brain. She is converted to normal sinus rhythm on her own. She has significant dysphagia, dysarthria and left-sided body weakness. Plan of Treatment: As per [facility] plan of 04/23/22 Care Goals: Improvement in symptoms and stabilization are the goals. Assessment: Discharge plan sent with patient to her SNF. - SNF / [facility] Transition Orders Admit to (Facility): [facility] Under the care of (Name): RONEY Best Discharge Diagnosis: As per [facility] plan of 04/23/22: 1. Right brain embolic strokes 2. New onset atrial fibrillation 3. Left body hemiplegia with dysarthria dysphagia 4. Ulcerative colitis 5. COPD 6. Hypertension and 7.Urinary retention, discharged with Andrade Medicare Certification Statement: I certify that [facility] care is medically necessary on a continuing basis for any of the conditions for which she/he is receiving care during hospitalization. Notify PCP of admission and forward orders to primary provider for signature. Other Notification Orders: Call PCP immediately if patient develops dyspnea, chest pain/tightness or edema. House Bowel Program: Yes Additional Bowel Program Orders: If no BM after 2 days, nurse may give M.O.M. 30ml PO PRN and/or ducolax Supp 1 LA and/or SEKOU 250mg P.O., and/or senna 1-2 tabs PO. On day 3 nurse may give repeat above order until residents constipation is resolved. Annual Influenza Vaccine (between Apr 25 and November 22): Yes Two-step PPD per [facility] [id number] or approved exception documents: Yes Treatments & Other Orders: As per [facility] plan written on 04/23/22 Medication Orders: PLEASE REFER TO THE DISCHARGE MEDICATION LIST. - Diet Type: Geriatric Follow Up: As per [facility] plan on 04/23/22
--- NOTE | 2022-04-30 11:22 | DISCHARGE SUMMARY ---
Discharge Summary Admit Date: 04/21/22 Discharge Date: 04/30/22 Discharging Provider: Dr Denisha Randall Primary Care Provider: RONEY Best Code Status: Do Not Attempt Resuscitation Condition at Discharge: Fair Discharge Disposition: 03 SNF DC/Xfer - HPI History of Present Illness: This is an 87-year-old white female that lives with her family. She has a history of COPD on inhalers prn, ulcerative colitis for which she needs occasional bursts of prednisone and she takes azathioprine also. There is a history of hypertension on lisinopril and hypothyroidism on Synthroid. The patient had a recent ulcerative colitis flare and received 7 days of oral prednisone 20 mg daily and her diarrhea and symptoms got better. Today the patient was last seen well at about 3 PM and then went to take a nap. At 6 PM when she awoke she had garbled speech and left-sided weakness. She was brought in by ambulance and arrived 4.5 hours after her last known well. Work-up in the ED with a head CT, and head and neck CTA showed no stroke, no hemorrhage, no major vessel occlusion. There was evidence of some vessel stenosis. Telestroke was not called by the ED service because the family wanted to focus on comfort and rehab and not consider interventional radiology and declined consideration for tPA. She has dysphasia and dense weakness of the left side. S he received Aspirin per rectum. On telemetry she was noted to be in A. fib with RVR at a rate of 130. There is no prior history of A. fib. Her last Echo was done in 2018 which showed LVH and LVEF of 50 to 55%. She has left bundle branch block on EKG, which is an old finding. The ED provider reached out to the Hospitalist team to admit this patient for work-up and management of an acute stroke. I spoke to the daughter who was at bedside regarding the patient's CODE status. There is a POLST form at home. Patient desires to be DNR/DNI. - HOSPITAL COURSE Hospital Course: 1. Right brain embolic stroke(s) She had L sided weakness and dysarthria and dysphagia. A brain MRI was done that showed 3 areas of embolic stroke on the right side. An Echo was done that showed Normal LV size and function, Mildly dilated LA and RA. Mild mitral and tricuspid regurg and PA pressure 46 mmHg. no clot or shunt was seen. Her new onset A. fib was likely the cause for these embolic strokes. She participated with PT, OT and speech therapy and had significant improvement during this hospi talization. She is being discharged to SNF for further rehab and was on new aspirin and statin. 2. New onset atrial fibrillation This was likely the underlying cause for the stroke. She was started on daily aspirin. She was on telemetry. Her fast heart rate was controlled with IV medications until she could swallow oral meds. She converted to NSR spontaneoulsy while here. She was discharged on new aspirin and new Metoprolol for her A. fib. 3. Hx of Ulcerative colitis As per Hx, this has been quiescent on her meds. 4. COPD without exacerbation She was not in exacerbation. She was on nebulizers while here and then we resumed her inhalers at the time of discharge. 5. Hypothyroidism 6. Hypertension She was allowed 24 hours of permissive hypertension. We resumed her Lisonoprol plus on new Metoprolol her blood pressure was controlled. 7. Urinary retention She received a Andrade at admission which was later removed. She then had urinary retention and a Andrade needed to be reinserted. She was discharged with a Andrade. She needs Urology work-up and follow-up. - ALLERGIES Allergies/Adverse Reactions: Allergies Allergy/AdvReac Type Severity Reaction Status Date / Time tetracycline [Tetracycline] AdvReac Nausea Verified 04/12/22 17:49 - MEDICATIONS Home Medications: Ambulatory Orders Medication Instructions Recorded Confirmed Levothyroxine Sodium [Synthroid] 125 mcg PO QDAC 02/08/13 04/22/22 Lisinopril 20 mg PO DAILY 02/08/13 04/22/22 Multivitamin [Multivitamins] 1 each PO DAILY 02/08/13 04/22/22 Albuterol Sulf [Ventolin Hfa 2 - 3 puffs INH Q4HR PRN #1 inhaler 02/06/21 04/22/22 Inhaler] Latanoprost 0.005% Ophth Drops 1 drops EACHEYE QPM 04/22/22 04/22/22 [Xalatan Ophth Drops] Mesalamine [Asacol Hd] 1,600 mg PO TID 04/22/22 04/22/22 Timolol 0.5% Ophth Drops [Timoptic 1 drops EACHEYE BID 04/22/22 04/22/22 0.5% Ophth Drops] Tiotropium [place] [Spiriva 18 mcg INH DAILY 04/22/22 04/22/22 Handihaler] azaTHIOprine [Azathioprine] 100 mg PO DAILY 04/22/22 04/22/22 Aspirin [Vazalore] 162 mg PO DAILY #15 cap 04/30/22 Atorvastatin [Lipitor] 40 mg PO QPM #30 tablet 04/30/22 Metoprolol Tartrate [Lopressor] 12.5 mg PO BIDWM #15 tablet 04/30/22 Zinc Oxide 20% Oint [Zinc Oxide] 1 applic TOP PRN PRN 04/30/22 - PHYSICAL EXAM AT DISCHARGE General Appearance: positive: No acute distress, Alert Eyes Bilateral: positive: Normal inspection, EOMI ENT: positive: ENT inspection nml Neck: positive: Nml inspection, No JVD Respiratory: positive: No respiratory distress, Breath sounds nml Cardiovascular: positive: Regular rate & rhythm Abdomen: positive: Non-tender, Nml bowel sounds Skin: positive: Warm, Dry Extremities: positive: Non-tender, No pedal edema Neurologic/Psychiatric: positive: Oriented x3, Other (Abn speech, weak L arm and L leg) - LABS Result Diagrams: 04/29/22 08:00 04/29/22 08:00 - DIAGNOSTIC IMAGING Diagnostic Imaging Results: Final report reviewed - FOLLOW UP Follow Up: See PCP after DCh from SNF. - TIME SPENT Time Spent in Discharge (Minutes): 45
--- NOTE | 2022-04-30 11:33 | Discharge Plan ---
Discharge Plan for SNF / [facility] - Discharge Plan And Transition Orders Problem Reviewed?: Yes Disposition: 03 SNF DC/Xfer Condition: Stable Allergies and Adverse Reactions: Allergies Allergy/AdvReac Type Severity Reaction Status Date / Time tetracycline [Tetracycline] AdvReac Nausea Verified 04/12/22 17:49 Health Concerns: She is an 87-year-old white female who lives with her daughter, has ulcerative colitis, stable COPD, hypertension who went to take a nap at 3:00 and woke up at 6 PM with left-sided stroke. She was found to be in new onset atrial fibrillation in the emergency room. MRI confirms 3 areas of small embolic strokes on the right brain. She is converted to normal sinus rhythm on her own. She has significant dysphagia, dysarthria and left-sided body weakness. Plan of Treatment: As per [facility] plan of 04/23/22 Care Goals: Improvement in symptoms and stabilization are the goals. Assessment: Discharge plan sent with patient to her SNF. - SNF / RETIREMENT Transition Orders Medicare Certification Statement: I certify that [facility] care home care is medically necessary on a continuing basis for any of the conditions for which she/he is receiving care during hospitalization. Notify PCP of admission and forward orders to primary provider for signature. Other Notification Orders: Call PCP immediately if patient develops dyspnea, chest pain/tightness or edema. Additional Bowel Program Orders: If no BM after 2 days, nurse may give M.O.M. 30ml PO PRN and/or ducolax Supp 1 [place] and/or SEKOU 250mg P.O., and/or senna 1-2 tabs PO. On day 3 nurse may give repeat above order until residents constipation is resolved. Medication Orders: PLEASE REFER TO THE DISCHARGE MEDICATION LIST. - Medications New Prescriptions: Atorvastatin [Lipitor] 40 mg PO QPM #30 tablet Metoprolol Tartrate [Lopressor] 12.5 mg PO BIDWM #15 tablet Aspirin [Vazalore] 162 mg PO DAILY #15 cap - Diet Type: Geriatric
== END 2022-04-30 11:15 | DRG 65 ==
LOC: EDUNIT# → ED 18:49 → MS2 20:48
PROVIDERS: ADMIT Internal Medicine; ATTEND Internal Medicine
DX: I63.9 Cerebral infarction, unspecified (principal); R47.89 Other speech disturbances; I63.40 Cerebral infarction due to embolism of unspecified cerebral artery; E87.1 Hypo-osmolality and hyponatremia; G81.94 Hemiplegia, unspecified affecting left nondominant side; K51.90 Ulcerative colitis, unspecified, without complications; R47.02 Dysphasia; R13.10 Dysphagia, unspecified; Z87.19 Personal history of other diseases of the digestive system; I10 Essential (primary) hypertension; R29.713 NIHSS score 13; I48.91 Unspecified atrial fibrillation; J44.9 Chronic obstructive pulmonary disease, unspecified; E03.9 Hypothyroidism, unspecified; R33.9 Retention of urine, unspecified; I44.7 Left bundle-branch block, unspecified; Z66 Do not resuscitate; Z20.822 Contact with and (suspected) exposure to COVID-19; Z87.891 Personal history of nicotine dependence; E86.1 Hypovolemia; D72.825 Bandemia; R29.810 Facial weakness; R47.1 Dysarthria and anarthria
CPT/HCPCS: 36415; 51702; 70450; 70496; 70498; 70551; 71045; 80048; 80053; 80061; 81001; 83690; 83735; 84100; 84443; 85025; 87493; 87633; 87635; 91300; 92526; 92610; 93005; 93306; 94640; 97110; 97112; 97163; 97165; 97530; 97535; 99285; A6250; A9270; J0131; Q9967; 81003; 83721; 87086